=== PATIENT | female | born 1940 | race Caucasian/White ===

== ENCOUNTER 2017-11-26 09:29 | Outpatient (CLI) | payer MEDICARE, OTHER, SELFPAY ==
[2017-11-26] VITALS (13 sets, daily range): BP systolic 97–160; BP diastolic 43–82; PULSE 63–75; RESP 16–22; TEMP 36.6; O2SAT 92–100
--- NOTE | 2017-11-26 09:33 | DI.RAD.S_ITS ---
PROCEDURE: PAIN L/S MED/LAT N RFA INDICATIONS: Facet arthropathy, right-sided L4, L5, and S1 MB rhizotomy FINDINGS: Fluoroscopic spot filming was performed to verify placement of spinal needles at the right L4, right L5, right S1 nerve root level(s), as labeled on the films. Appropriate location(s) of the needle tip(s) was confirmed. IMPRESSION: Successful localization of the right L4, right L5, and right S1 nerve root courses for facet RF frequency ablation rhizotomy. Dictated by: Celso Serrano M.D. on 11/26/2017 at 12:02 Approved by: Celso Serrano M.D. on 11/26/2017 at 12:15
--- NOTE | 2017-11-26 10:06 | P.PCN_ITS ---
Procedures Date/Time Date of procedure: 11/26/17 Time of procedure: 10:05 General Procedure description: PREOP DIAGNOSIS 1. RECALCITRANT FACET ARTHROPATHY, POST OP DIAGNOSIS 1. RECALCITRANT FACET ARTHROPATHY, PROCEDURES 1. RIGHT L4 AND L5 MEDIAL BRANCH RADIOFREQUENCY NEUROTOMY AND RIGHT S1 DORSAL RAMUS BRANCH RADIOFREQUENCY NEUROTOMY, SURGEON: DO EMELINA Wilson is referred by Dr. Akins for treatment of facet arthropathy. DESCRIPTION OF PROCEDURE Right L4 and L5 medial branch radiofrequency neurotomy and right S1 dorsal ramus branch radiofrequency neurotomy under fluoroscopy with conscious sedation. The patient is well known to this clinic having undergone previous facet injections with good but temporary relief. The patient has experienced appropriate, concordant relief with previous facet and median branch blocks but the patient's pain has been recalcitrant to further conservative measures. Therefore, based upon the patient's relief and persistent symptoms, the patient is considered an appropriate candidate for facet rhizotomy. All of the patient' s questions regarding the risks versus benefits of the procedure, including, but not limited to, bleeding, infection, temporary as well as lasting nerve injury, paralysis, stroke, and , as well treatment alternatives were answered to satisfaction. After obtaining informed consent, denial of pertinent drug allergies, as well as being made aware of the potential risks of bleeding, infection, spinal cord trauma, paralysis, temporary and permanent nerve damage, seizure, stroke, and possible , the patient was brought to the fluoroscopy suite and positioned prone on the fluoroscopy table. The lumbar region was prepped with Betadine and covered with a fenestrated drape in the usual sterile fashion. Appropriate monitors applied including pulse oximeter, pulse, and blood pressure for regular monitoring throughout the procedure. IV sedation was accomplished with a combination of 5mg of Versed and 50mcg of Fentanyl titrated to patient comfort during the course of the procedure while the patient remained responsive to all verbal commands. After local infiltration using 1% lidocaine, under fluoroscopic guidance, a 10- cm RF insulated needle with a 10-mm active tip was positioned parallel to the junction of the right sacral ala and the superior articulating process where the S1 dorsal ramus resides. Needle placement was confirmed with sensory stimulation at 50 Hz, with motor stimulation of .5v on the right which produced local stimulation without radicular component. The stimulation was then increased to 1.5v with, once again, only local multifidus stimulation without radicular component. This was then followed by two discreet lesions performed at 80 degrees Celsius for 90 seconds each. The needle was then removed and the identical procedure was performed along the length of the right L5 medial branch with motor stimulation at .7v on the right. The identical procedure was once again performed along the length of the right L4 medial branch with motor stimulation of .5v on the right. The patient was then transferred to the recovery area where they were observed for an appropriate period of time after the injection. The patient reported a VAS score of 9 prior to the procedure and a post-procedure VAS of 0. Total Fluoroscopy Time: 31 seconds Total Conscious Sedation Time: 45min POST OP INSTRUCTIONS The patient was provided a Pain Log to continue to record the patient's response to the target-specific procedure prior to the patient's follow-up visit with the referring physician. Additionally, specific post-injection care instructions and a contact number to our office were provided if concerns arise regarding possible complications associated with the procedure are suspected. Cedric Newman DO Complications: none
[2017-11-26] MEDS: BUPIVACAINE 0.25% (PF) 30 ML VIAL INJ (11:56)
[2017-11-26] MEDS: fentaNYL 100 MCG/2 ML INJ 50 MCG IV (11:56)
[2017-11-26] MEDS: MIDAZOLAM 5 MG/5 ML VIAL IV (11:57)
[2017-11-26] MEDS: LIDOCAINE 1% 20 ML INJ INJ (11:57)
== END 2017-11-26 11:58 | disposition home or self-care (01) ==
PROVIDERS: Visit Provider Physical Medicine & Rehabilitation
DX: M47.816 Spondylosis without myelopathy or radiculopathy, lumbar region (principal)
CPT/HCPCS: 64635; 64636; 99152; 99153; J2250; J3010

== ENCOUNTER 2019-03-17 06:14 | Inpatient (IN) | payer MEDICARE, OTHER, SELFPAY ==
[2019-02-04 12:36] VITALS: BMI 33.5
[2019-03-17] VITALS (22 sets, daily range): BP systolic 82–134; BP diastolic 40–87; PULSE 70–96; RESP 10–18; TEMP 36.1–36.8; O2SAT 94–100; BMI 33.5
--- NOTE | 2019-03-17 | DI.RAD.S_ITS ---
PROCEDURE: XR LUMBAR SPINE 2-3V INDICATIONS: L4-S1 TLIF TECHNIQUE: 2 views of the lumbar spine were acquired. COMPARISON: [facility], MR, MR LUMBAR SPINE WITHOUT CONTRAST, 12/02/2018, 11:36. FINDINGS: AP and lateral operative images demonstrate posterior lateral inna and pedicle screw fixation at L4-S1 with placement of interbody disc material. IMPRESSION: Operative fluoroscopy utilized during L4-S1 TLIF Dictated by: Moreno Grossman M.D. on 03/17/2019 at 13:25 Approved by: Moreno Grossman M.D. on 03/17/2019 at 13:28
[2019-03-17] MEDS: LACTATED RINGERS 1,000 ML 42 ML IV ×3 (07:30→12:01)
--- NOTE | 2019-03-17 07:42 | SUR.PREOP ---
Spoke with Dr. Villegas regarding pt lower extremities. Per Dr. Villegas will leave stockenettes on and after pt is asleep in the OR they will be removed and wound care will see pt while inpatient. Communicated this with circulating RN, Mary.
--- NOTE | 2019-03-17 07:45 | PM.PREOP ---
Pre-operative Note Interval Note History & Physical reviewed/Exam performed by Physician: Yes Changes to H&P: No
[2019-03-17] MEDS: CEFAZOLIN 2 GM/100 ML FROZ.PIGGY IV ×2 (08:06→16:29)
[2019-03-17] MEDS: ACETAMINOPHEN IV 1,000 MG/100 ML VIAL 400 MG IV (09:00)
--- NOTE | 2019-03-17 09:15 | SUR.OPER ---
Prone on spine table, head in foam head support, padded chest and pelvic supports, gel pad at knees, lower legs supported by pillows; nipples, genitalia and toes free of pressure, arms secured on foam padded arm boards at <90 degrees abduction. Tape over blanket at thigh secured to table.
[2019-03-17] MEDS: BUPIVACAINE 0.25% W/ EPI 30 ML VIAL INJ (09:22)
[2019-03-17] MEDS: BUPIVACAINE LIPOSOME 266 MG/20 ML VIAL INJ (09:23)
--- NOTE | 2019-03-17 13:01 | CM.DANOTE ---
DCP Brief Assessment Note Patient is a 78 year old female who was admitted today 03/17/19 for TLIF. Pt has MCR and REG PPO for insurance and her PCP is Dr. Carlo Akins. EMR was reviewed. Per Josiane LARSON, pt to have back surgery today and pt's initial d/c plan is to d/c home with son Keegan for assist. SW attempted bedside assessment but pt still off the floor this afternoon in Surgery. Plan: SW to follow for bedside assessment later this afternoon or tomorrow when pt is back to the floor from surgery and appropriate for assessment. LUIS EDUARDO Yee
--- NOTE | 2019-03-17 13:10 | P.OP_ITS ---
Operative Date/Time/Diagnoses Date of procedure: 03/17/19 Time of procedure: 08:10 Pre-op diagnosis: 1. L4-5, L5-S1 spondylolisthesis 2. L4-5, L5-S1 spinal stenosis Post-op diagnosis: same Procedure & Clinicians Procedure: 1. L4-5, L5-S1 Postero-lateral and posterior interbody fusion 2. L4-5, L5-S1 interbody cage placement. 3. L4-5, L5-S1 decompressive laminectomy with bilateral facetecomies 4. L4-5, L5-S1 Posterior segmental instrumentation 5. Utilization of microsurgical technique and operating microscope Same procedure as scheduled: Yes Indications: Patient has been having chronic back pain and worsening lumbar radiculopathy. Patient failed multiple conservative management with worsening pain weakness and numbness in her lower extremity. Patient has been having difficulty performing activity of daily living. After discussing risks benefits of treatment options, patient elected proceed with surgery. Surgeon: Cathy Villegas Manager Labor Delivery: Loly Armas Click Yes if Unassisted: No Anesthesia Type: General Operative Notes Closure Type: primary Specimen(s): none sent Prosthetic devices, grafts, tissues, transplants, or devices: Globus revolve screws, Rise cages Applied: catheter Estimated Blood Loss (mL): 150 Blood products transfused: none Procedure in detail: Patient was seen in the preoperative area. Risks and benefits of the surgery was discussed with the patient. Informed consent was obtained from the patient and placed in the chart. Surgical site was marked. Patient was taken to the operative room. General anesthesia was administered. Prophylactic antibiotic was given to the patient less than 30 min before the incision was made. Patient was placed into a prone position on the Compa table. Patient's back was then prepped and draped in the sterile fashion. Time- out was performed at this time. Using AP and lateral C-arm imaging the interval between L4-S1 was identified and marked on patient's back. A 2 inch incision 2 in from midline was made on the right side first. The fascia was incised in line with skin incision. Globus MARS retractors was placed inside the incision and docked onto the L4 and L5 lamina. Using microsurgical technique and operating microscope, a L4 and L5 laminectomy and L4-5 L5-S1 facetectomy was performed using a Kerrison rongeur. During the process of decompression more than 75% of bilateral L4-5 L5-S1 facets were removed in order to decompress the spinal canal and the lateral recess. The L4-5 L5-S1 level was grossly unstable after the decompression was completed and requiring the fusion procedure. The disc space at L4-5, L5-S1 was identified. And a total diskectomy was performed at L4-5, L5-S1 level. The endplates were decorticated using a rasp and shaver. The total diskectomy and decortication was performed at L4-5, L5-S1 level in order to to accomplish a L4- 5, L5-S1 fusion. The local bone from the laminectomy and facetectomy was saved for local bone grafting. After the total diskectomy and decortication was completed, Bio4 bone graft material was combined with local bone that was harvested earlier. The local bone and the Bio4 bone grafting material was placed into the L4-5, L5-S1 interbody space along with two cages, one expandable cage at each level. The cages were expanded to their maximum height using the torque limiting screwdriver. At this time a mirror image incision was made on the left side. The fascia was incised in line with the skin incision. Globus MARS retractor was inserted and docked onto the L4-5, L5-S1 posterolateral gutter. Using the power drill, posterior-lateral decortication was performed at L4-5, L5-S1 level until bleeding cortical bone was identified. The remaining bone grafting material was placed into the L4-5 L5-S1 posterior lateral gutter he order to accomplish posterolateral fusion at the L4-5 L5-S1 levels. Using the double C-arm technique, pedicle screws were placed into the L4, L5, S1 pedicles bilaterally. This was done by placing the Jamshidi needle into the ped icles, then placing the guidewires over the Jamshidi needle, and finally placing the cannulated screws over the guidewires bilaterally. After the pedicle screws were placed, 2 titanium rods was locked into the heads of the pedicle screws using locking caps and torque limiting screwdriver. Total 6 pedicles screws were placed. Thread reducers were used to reduce patient's spondylolisthesis. An appropriate reduction was accomplished using the threaded reduce her and hardware used. After all the hardware was placed, and confirmed with AP and lateral C-arm imaging, the wound was then irrigated with sterile normal saline and packed with Ray-Hue gauze for 3 min to accomplish hemostasis. After the gauze was removed the deep fascia was closed with #1 Vicryl suture. The subcutaneous layer was des sed with 2-0 Vicryl. The skin was closed with skin jeovanny. Patient tolerated the procedure well. There were no complications. Complications: none Post-operative Condition: stable Disposition: PACU Plan for aftercare: Admit to inpatient hospital
[2019-03-17] MEDS: HYDROMORPHONE 2 MG INJ 0.5 MG IV ×2 (13:57→14:08)
[2019-03-17] MEDS: SODIUM CHLORIDE 0.9% 1,000 ML 100 ML IV (15:41)
--- NOTE | 2019-03-17 16:29 | PT-IP ANOTE ---
Checked on pt, but pt noted she did not want to push it and try to get up. Pt was very adamantly against getting up at this time. Check on pt in AM.
[2019-03-17] MEDS: OXYCODONE IR 5 MG TABLET 10 MG PO (17:09)
--- NOTE | 2019-03-17 19:48 | PC.NURSE ---
A&OX3. 97% 2L. pain controlled with oxycodone 10mg. CMS+. refused to get up with PT. RLE weepy cellulitis, RLE elevated. oriented pt to room. abraham patent. call light in reach.
[2019-03-17] MEDS: DOCUSATE 100 MG CAPSULE PO (20:49)
[2019-03-17] MEDS: SENNOSIDES 8.6 MG TABLET 17.2 MG PO (20:50)
[2019-03-17] MEDS: OXYCODONE ER 10 MG TAB PO (20:50)
[2019-03-17] MEDS: hydrOXYzine pamoate 25 MG CAPSULE PO (20:50)
[2019-03-18] VITALS (10 sets, daily range): BP systolic 118–136; BP diastolic 59–68; PULSE 80–86; RESP 15–20; TEMP 36.3–36.8; O2SAT 87–97
[2019-03-18] MEDS: CEFAZOLIN 2 GM/100 ML FROZ.PIGGY IV (00:11)
[2019-03-18] MEDS: OXYCODONE IR 5 MG TABLET 10 MG PO ×6 (00:55→23:27)
[2019-03-18] MEDS: hydrOXYzine pamoate 25 MG CAPSULE PO ×4 (00:56→21:05)
--- NOTE | 2019-03-18 01:00 | PC.NURSE ---
Pt requesting pain medication for 8/10 back pain. Medicated with percolone and Vistaril. Primary nurse, Janette, notified.
--- NOTE | 2019-03-18 01:40 | PC.NURSE ---
Addendum entered by Janette Jacinto R.N. 03/18/19 05:21: Complains of aching pain in low back radiating down right leg but denies spasms; medicated with Oxycodone. Declines repositioning or ice pack at this time. Addendum entered by Janette Jacinto R.N. 03/18/19 02:01: Wearing foot SCD on right foot only as states wearing SCD on left foot causes leg spasms so declines to wear on left. Original Note: Patient is alert; oriented except to month/day. Breath sounds CTA but mouth breaths and desats with sleep so is currently on 2L/min oxygen per NC with sat of 95%. HRR. Denies nausea. BT present but denies flatus. Indwelling catheter is patent; urine is clear yellow. Able to assist with repositioning. Dressing to back is CDI. Does complain of 8/10 sharp/spasm like pain and was medicated with Oxycodone but declined ice pack as is too cold. CMS is intact. Cellulitis present in bilateral LE prior to surgery left > right. Has Allevyn dressing to left anterior lower leg and has intact blisters distally to Allevyn dressing. Reports left leg is weepy and does have dried drainage on compression sleeves covering legs. Edema present in feet/ankles. Reports fall 1 month ago so fall risk score is high and bed alarm is activated.
[2019-03-18] MEDS: SODIUM CHLORIDE 0.9% 1,000 ML 100 ML IV (03:16)
[2019-03-18 05:44] LABS: Hematocrit 26.5 % (36-46)
--- NOTE | 2019-03-18 09:13 | PT.IIE ---
Current Diagnoses Spondylolisthesis, lumbar region (03/17/19) Other spondylosis with radiculopathy, lumbosacral region (03/17/19) Spinal stenosis, lumbar region with neurogenic claudication (03/17/19) Surgery Performed Operation Date: 03/17/19 07:45 Actual Procedures p L4-5, L5-S1 TLIF with posterior instrumentation - Cathy Villegas MD Surgical History (Last Updated 03/03/19 @ 10:09 by Radha Mclean RN) History of arthroplasty of left knee (Acute 06/09/17) History of arthroplasty of right knee (Acute) Hx of appendectomy (Acute ~1982) Medical History (Last Updated 03/03/19 @ 10:09 by Radha Mclean RN) Arthritis (Acute) Basal ganglia disease (Acute) Brain bleed (Acute ~12/2016) Cellulitis (Acute ~02/2019) Chronic venous hypertension (idiopathic) 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 (Acute) H/O: hysterectomy (Acute) HTN (hypertension) (Acute) Non-pressure 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 2 steps with R rail ascending Home Environment Standard Height Toilet,Tub/ Shower Home Equipment Front Wheel Walker,Four Wheel Walker,Straight Cane,Hand Held Shower Employment Status Retired M2 PT-IP Current Condition Start: 03/18/19 12:14 Freq: NEEDED Status: Active Protocol: Document 03/18/19 09:13 AB (Rec: 03/18/19 12:29 AB [email or web address]) Physical Therapy Current Condition Current Condition Evaluation Date 03/18/19 Treatment Diagnosis s/p L4-5, L5S1 fusion; difficulty in walking Onset Date 03/17/19 Precautions Lumbar Precautions Log Roll,No Twisting,Limit Bending,Lifting Restriction of 10 lbs,Gait Belt above Incisional Area M3 PT-IP Subjective Start: 03/18/19 12:14 Freq: NEEDED Status: Active Protocol: Document 03/18/19 09:13 AB (Rec: 03/18/19 12:29 AB [email or web address]) Subjective Physical Therapy Visit Type Type Initial Evaluation Visit Start Time 09:13 Visit Stop Time 09:49 Total Visit Minutes 36 Number of 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 Physical Therapy Visit Comments Patient Comments I cannot do this; pt easily agitated and contradictory to instructions and education Therapy Pain Assessment Pain When Pain Assessed At Rest Pain Present Pain Present Pain Reported Location Right Leg Intensity 6 Scale Used Numeric (1 - 10) Description Spasm Pain Management Techniques Timing of Activity with Medications M4 PT-IP Mobility and Gait Start: 03/18/19 12:14 Freq: NEEDED Status: Active Protocol: Document 03/18/19 09:13 AB (Rec: 03/18/19 12:29 AB [email or web address]) PT-Bed Mobility Assessment Rolling Level of Assist Maximal Assistance,1 Person Assistance Supine to Sit Supine to Sit Maximum Assistance,1 Person Assistance,2 Person Assistance Scooting Scooting to Edge of Bed Maximum Assistance PT-Transfer Assessment Sit to and From Stand Sit to and from Stand Maximum Assistance,2 Person Assistance,Use of Upper Extremities Equipment Transfer Assistive Device Gait Belt,Front Wheeled Walker Orthotic/Prosthetic Devices or Brace: No Transfers Transfer Technique Stand Step Pivot Transfer Ability Level of Assist Maximum Assistance,2 Person Assistance,Use of Upper Extremities Comments Mobility Comments pt c/o increase pain with mobility and contradicting instructions for safe transfers. pt completed supine to sit log roll max A and max cues. pt was able to sit on EOB CGA. required max A x 1-2 for scooting to EOB. pt stated that she cannot do it. completed sit to stand max A x 2 and max cues. and was able to take steps to transfer to the chair using FWW max A x 2 and max cues. Gait Assessment Comments Gait Comments able to take steps to transfer to the chair using FWW max A x 2 and max cues PT-Balance Assessment Sitting Balance and Reactions Static Sitting Balance Ability Good Dynamic Sitting Balance Ability Fair Standing Balance and Reactions Static Standing Balance Ability Poor Dynamic Standing Balance Ability Poor Device Used FWW M5 PT-IP Objective Assessments Start: 03/18/19 12:14 Freq: NEEDED Status: Active Protocol: Document 03/18/19 09:13 AB (Rec: 03/18/19 12:29 AB [email or web address]) Orientation Orientation/Cognition Level of Alertness Alert Orientation Name,Place,Situation Safety Awareness Decreased Safety Awareness Gross Range of Motion Lower Extremity ROM Assessment Bilaterally Impaired Impairments pain limiting movements Strength Lower Extremity Strength Assessment Bilaterally Impaired Hip 3-/5 Knee 3-/5 Muscle Tone Muscle Tone WNL Yes M6 PT-IP Treatment Start: 03/18/19 12:14 Freq: NEEDED Status: Active Protocol: Document 03/18/19 09:13 AB (Rec: 03/18/19 12:29 AB [email or web address]) Physical Therapy Treatment Exercises Exercises Heel Slides Education Education Provided Precautions,Weight Bearing Status,Post-Op Packet,Safety M7 PT-IP Assessment and Plan Start: 03/18/19 12:14 Freq: NEEDED Status: Active Protocol: Document 03/18/19 09:13 AB (Rec: 03/18/19 12:29 AB [email or web address]) PT Summary Assessment and Plan Potential Rehabilitation Potential Fair Status of Condition at Evaluation Evolving Summary Impairments Pain,ROM,Strength,Balance, Coordination,Sensation,Tone, Cognition,Bed Mobility, Transfers,Gait,Activity Tolerance Assessment Summary pt requiring max A x 2 with mobillity and c/o increase pain with activity affecting function. pt unable to ambulate and tolerate much activity due to c/o pain. nurse is aware of pt's c/o pain. d/c plan depending on progress but at this time irvin need SNF rehab to improve strength and mobility. Goals Bed Mobility Goal Contact Guard Assistance Transfer Goal Contact Guard Assistance,Front Wheeled Walker Gait Goal Contact Guard Assistance,Front Wheel Walker Gait Distance 100 Other Goals up/down 2 steps R rail CGA Days to Meet Goals 5 Frequency of Treatment Frequency Of Treatment Twice a Day Treatment Plan Physical Therapy Treatment Plan Bed Mobility Training,Transfer Training,Gait Training, Therapeutic Exercise,Balance Retraining,Post Op Education, Discharge Planning,Hot or Cold Pack,Neuromuscular Re-ed, Coordination Retraining,Manual Therapy Other Recommendations and Next Treatment ambulation, transfers, bed Focus mobility Recommendations To Nursing Amount of Assist Needed 2 Person Assist Discharge Recommendations PT Discharge Recommendations SNF Rehab
[2019-03-18] MEDS: ACETAMINOPHEN 325 MG TABLET 650 MG PO (09:24)
[2019-03-18] MEDS: OXYCODONE ER 10 MG TAB PO ×2 (09:25→21:02)
[2019-03-18] MEDS: LOSARTAN 50 MG TABLET PO ×2 (09:25→21:02)
[2019-03-18] MEDS: hydroCHLOROthiazide 25 MG TABLET PO (09:25)
[2019-03-18] MEDS: DOCUSATE 100 MG CAPSULE PO ×2 (09:25→21:02)
[2019-03-18] MEDS: AMLODIPINE 5 MG TABLET 10 MG PO (09:44)
--- NOTE | 2019-03-18 10:31 | PM.PNPO.1 ---
Subjective Subjective Date Patient Seen: 03/18/19 Time Patient Seen: 10:31 Interval history: Hospital day 2, postop day 1 following L4-5, L5-S1 laminectomy, TLIF, cage, posterior screw fixation by Dr. Villegas. Patient has remained stable postoperatively. She has not had physical therapy yet. She has not been out of bed yet. Does have Lee catheter in place. Pain controlled with OxyContin 10 mg 1 b.i.d. and oxycodone 10 mg. Patient does have lower leg stasis and cellulitis that is being treated by the [facility]. She states having dressings changed usually on Mondays and Fridays. Her last dressing change was done on Friday03/15/2019. She has been noting some weeping to the left leg through her compression stockings. Exam Vital Signs (past 8 hours): - 03/18/19 05:00 03/18/19 07:45 Temperature 97.3 F L 97.7 F Pulse Rate 81 80 Respiratory Rate 18 15 Blood Pressure 121/61 127/65 Pulse Oximetry 96 95 Fraction of Inspired Oxygen 28 Oxygen Delivery Method Nasal Cannula Oxygen Flow Rate 2 Narrative Exam Narrative: Alert, oriented no acute distress resting in bed. Back. Dressing is dry without drainage. Legs. Good pulses and sensation to feet. Compression stockings are in place to both legs. Does have some weeping noted to the left lower leg through the stockings. Objective Labs Result Diagrams: 03/18/19 05:29 Labs: Laboratory Results - last 24 hr 03/18/19 05:29 Hgb 9.0 L Hct 26.5 L Assessment & Plan Post-op Postoperative Procedures: Procedures Operation Date: 03/17/19 07:45 Actual Procedures Side Surgeon p L4-5, L5-S1 TLIF with posterior instrumentation Cathy Villegas MD Plan: Patient will work with physical therapy today. Observe for improvement in pain and function. Recheck H&H in the morning. We will check with [facility] to get their recommendation on what to do with her leg wounds. May need to have our Wound Clinic see her. JOSE Lee. Anticipate discharge home tomorrow if she is stable.
--- NOTE | 2019-03-18 11:20 | DIET.PN ---
Dietary Progress Note Assessment: 78y F s/p translaminar interbody fusion c acute cellulitis and edema in legs. HT: 167.6cm WT: 94.2kg BMI: 33 Interventions: Recc ONS Luis bid to support resolving cellulitis
[2019-03-18] MEDS: HYDROMORPHONE 0.5 MG INJ IV (12:11)
--- NOTE | 2019-03-18 14:57 | PT.IPTN ---
Current Diagnoses Spondylolisthesis, lumbar region (03/17/19) Other spondylosis with radiculopathy, lumbosacral region (03/17/19) Spinal stenosis, lumbar region with neurogenic claudication (03/17/19) Surgery Performed Operation Date: 03/17/19 07:45 Actual Procedures p L4-5, L5-S1 TLIF with posterior instrumentation - Cathy Villegas MD Physical Therapy Treatment Note M2 PT-IP Current Condition Start: 03/18/19 12:14 Freq: NEEDED Status: Active Protocol: Document 03/18/19 09:13 AB (Rec: 03/18/19 12:29 AB [id number]) Physical Therapy Current Condition Current Condition Evaluation Date 03/18/19 Treatment Diagnosis s/p L4-5, L5S1 fusion; difficulty in walking Onset Date 03/17/19 Precautions Lumbar Precautions Log Roll,No Twisting,Limit Bending,Lifting Restriction of 10 lbs,Gait Belt above Incisional Area M3 PT-IP Subjective Start: 03/18/19 12:14 Freq: NEEDED Status: Active Protocol: Document 03/18/19 14:57 AB (Rec: 03/18/19 17:14 AB [email or web address]) Subjective Physical Therapy Visit Type Type Treatment Note Visit Start Time 14:57 Visit Stop Time 15:27 Total Visit Minutes 30 Number of CATTYMAN Visits 0 Physical Therapy Visit Comments Patient Comments pt she feels better since she is medicated M4 PT-IP Mobility and Gait Start: 03/18/19 12:14 Freq: NEEDED Status: Active Protocol: Document 03/18/19 14:57 AB (Rec: 03/18/19 17:14 AB [email or web address]) PT-Bed Mobility Assessment Supine to Sit Supine to Sit Maximum Assistance,2 Person Assistance,Bedrails Sit to Supine Sit to Supine Maximum Assistance,2 Person Assistance,Bedrails Scooting Scooting to Edge of Bed Maximum Assistance Scooting Up and Down in Bed Maximum Assistance PT-Transfer Assessment Sit to and From Stand Sit to and from Stand Maximum Assistance,2 Person Assistance,Use of Upper Extremities Equipment Transfer Assistive Device Gait Belt,Front Wheeled Walker Orthotic/Prosthetic Devices or Brace: No Comments Mobility Comments pt completed uspine to sit max A x 2 and max cues and used bed rail for assistance. pt was able to sit on EOB CGA and completed sit to stand max A x 2 and max cues. pt ambulated in room using FWW ~ 15 ft mod A x 1-2 and cues. pt sat back on EOB requiring mod Ax 1-2 for controlled descent. pt completed sit to stand from EOB again max A x 2 and max cues and was able to maintain standing using FWW for support mod A while assisted with brief managmenet . pt stated that she does not like the chair and wants to go back to bed. completed sit to supine max A x 2 and max cues. positioned pt in bed. call light and table placed within reach. Gait Assessment Gait Gait Assistance Required: Moderate Assistance,1 Person Assist,2 Person Assist Distance (Feet) 15 Able to Maintain Weight Bearing Status Yes During Gait Assistive Devices Assistive Device Gait Belt,Front Wheeled Walker Orthotic/Prosthetic Devices or Brace: No Gait Deviations General Gait Pattern Antalgic,Decreased Stride Length,Decreased Feet Clearance,Step-to Gait Factors Limiting Gait Function Factors Limiting Gait Function Decreased Activity Tolerance, Decreased Strength,Limited Range of Motion,Pain,Poor Balance,Poor Safety Awareness Comments Gait Comments pt presents with antalgic gait and cues required for safety. M5 PT-IP Objective Assessments Start: 03/18/19 12:14 Freq: NEEDED Status: Active Protocol: Document 03/18/19 09:13 AB (Rec: 03/18/19 12:29 AB [email or web address]) Orientation Orientation/Cognition Level of Alertness Alert Orientation Name,Place,Situation Safety Awareness Decreased Safety Awareness Gross Range of Motion Lower Extremity ROM Assessment Bilaterally Impaired Impairments pain limiting movements Strength Lower Extremity Strength Assessment Bilaterally Impaired Hip 3-/5 Knee 3-/5 Muscle Tone Muscle Tone WNL Yes M6 PT-IP Treatment Start: 03/18/19 12:14 Freq: NEEDED Status: Active Protocol: Document 03/18/19 14:57 AB (Rec: 03/18/19 17:14 AB [email or web address]) Physical Therapy Treatment Education Education Provided Precautions,Safety M7 PT-IP Assessment and Plan Start: 03/18/19 12:14 Freq: NEEDED Status: Active Protocol: Document 03/18/19 14:57 AB (Rec: 03/18/19 17:14 AB [email or web address]) PT Summary Assessment and Plan Potential Rehabilitation Potential Fair Summary Impairments Pain,ROM,Strength,Balance, Coordination,Sensation,Tone, Cognition,Bed Mobility, Transfers,Gait,Activity Tolerance Progress Towards Goals Slow Progress due to Pain,Slow Progress due to Activity Tolerance Assessment Summary pt continues to require max A x2 for bed mobility and transfers but was able to ambulate this afternoon requiring mod A x 1-2 and cues up to 15 ft. pt will need SNF rehab to improve strength and mobility prior to d/c to home . Goals Bed Mobility Goal Contact Guard Assistance Transfer Goal Contact Guard Assistance,Front Wheeled Walker Gait Goal Contact Guard Assistance,Front Wheel Walker Gait Distance 100 Other Goals up/down 2 steps R rail CGA Days to Meet Goals 5 Frequency of Treatment Frequency Of Treatment Twice a Day Treatment Plan Physical Therapy Treatment Plan Bed Mobility Training,Transfer Training,Gait Training, Therapeutic Exercise,Balance Retraining,Post Op Education, Discharge Planning,Hot or Cold Pack,Neuromuscular Re-ed, Coordination Retraining,Manual Therapy Other Recommendations and Next Treatment ambulation, transfers, bed Focus mobility Recommendations To Nursing Amount of Assist Needed 2 Person Assist Discharge Recommendations PT Discharge Recommendations SNF Rehab
--- NOTE | 2019-03-18 14:57 | PC.NURSE ---
Addendum entered by Jair Garay R.N. 03/18/19 14:59: Patient tolerated dressing change well. Patient reports she would like rosario out as ordered, but would like to attempt to get up with PT again this evening prior to removal. Patient states it was very challenging to get up and wants to make sure she will be able to get to the [facility] to urinate. Patient states using the bedpan is not going to work. Will update evening shift with plan of care. Original Note: Dressing to left leg oozing sangenous drainage. Removed, leg washed with normal saline. Pictures taken. Multiple open blisters noted with weeping. Non adherent foam dressing applied, then ABD pad and then wrapped with gauze. Tubi machine setter sheet metal stocking overlay placed. Right lower leg skin dry but intact, lotion applied. Noted received from [facility] wound clinic placed in chart.
--- NOTE | 2019-03-18 17:44 | OT.IP.EVAL ---
Current Diagnoses Spondylolisthesis, lumbar region (03/17/19) Other spondylosis with radiculopathy, lumbosacral region (03/17/19) Spinal stenosis, lumbar region with neurogenic claudication (03/17/19) Surgery Performed Operation Date: 03/17/19 07:45 Actual Procedures p L4-5, L5-S1 TLIF with posterior instrumentation - Cathy Villegas MD Past Medical History (Last Updated 03/03/19 @ 10:09 by Radha Mclean RN) Arthritis (Acute) Basal ganglia disease (Acute) Brain bleed (Acute ~12/2016) Cellulitis (Acute ~02/2019) Chronic venous hypertension (idiopathic) 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 (Acute) H/O: hysterectomy (Acute) HTN (hypertension) (Acute) Non-pressure chronic ulcer of left lower leg with fat layer exposed (Acute ~02/2019) Surgical History (Last Updated 03/03/19 @ 10:09 by Radha Mclean RN) History of arthroplasty of left knee (Acute 06/09/17) History of arthroplasty of right knee (Acute) Hx of appendectomy (Acute ~1982) Occupational Therapy Inpatient Evaluation/Re-Eval M1 PT/OT-IP Prior Functional Status Start: 03/18/19 17:26 Freq: NEEDED Status: Active Protocol: Document 03/18/19 17:27 [facility] (Rec: 03/18/19 17:44 [facility] [email or web address]) Medical Review Prior Functional Status Medical History Reviewed Yes Communication able to make needs known Mobility and Gait pt stated that she is modified independent with all mobilities and ambulation using a SPC/hurrycane Activities of Daily Living and IADL's Prior pt states completely independent with all needs of ADl's, IADl's, driving, medications, and finanaces. Social History Household Members children Living Arrangements House Number of Floors (Floors) One Floor Number of Stairs To Enter/Railing? 2 steps with R rail ascending Home Environment Standard Height Toilet,Tub/ Shower Home Equipment Front Wheel Walker,Four Wheel Walker,Straight Cane,Hand Held Shower,Long Handled Shoe Horn ,Oil Well Directional Surveyor Employment Status Retired M2 OT-IP Current Condition Start: 03/18/19 17:26 Freq: Status: Active Protocol: Document 03/18/19 17:27 [facility] (Rec: 03/18/19 17:44 [facility] [email or web address]) Occupational Therapy Current Condition Current Condition Evaluation Date 03/18/19 Treatment Diagnosis S/P L4-5, L5-S1, TLIF with posterior instr Diagnosis Onset Date 03/17/19 Post Operative Precautions Lumbar Precautions Log Roll,No Twisting,Limit Bending,Lifting Restriction of 10 lbs,Gait Belt above Incisional Area Weight Bearing Status Weight Bearing Status Weight Bear as Tolerated M3 OT- IP Subjective and Pain Start: 03/18/19 17:26 Freq: Status: Active Protocol: Document 03/18/19 17:27 [facility] (Rec: 03/18/19 17:44 [facility] [email or web address]) OT- Subjective Occupational Therapy Visit Type Type Initial Evaluation Visit Start Time 14:45 Visit Stop Time 15:27 Total Visit Minutes 42 Occupational Therapy Visit Comments Patient Comments Pt agreeable to get up and now pain more managed. OT Pain Assessment Pain When Pain Assessed At Rest Pain Present Pain Present Denied Pain M4 OT- IP ADL's Start: 03/18/19 17:26 Freq: Status: Active Protocol: Document 03/18/19 17:27 [facility] (Rec: 03/18/19 17:44 [facility] [email or web address]) OT [id number] Comments OT Self-Feeding Comments Pt states able to do independent at lunch with no problems. OT ADL-Dressing General Eval Lower Body Dressing Ability Maximum Assistance Areas Needing Assistance Underpants/Brief,Socks Comments OT Dressing Comments Beginning to talk to her about techniques to incorporate back precautions and use of lower body equipment. Pt assist to tread rosario through brief and assist to help pull up over her hips while another person standing with pt MODA x1. OT ADL-Toileting Comments OT Toileting Comments Pt not having to go as has catheter in. OT ADL-Bathing Comments OT Bathing Comments Pt states have a shower chair but does not like to use it. Pt has a tub/shower and showed her option of tub bench if needed to increase safety to get into and out of the tub. M5 OT- IP IADL's Start: 03/18/19 17:26 Freq: Status: Active Protocol: Document 03/18/19 17:27 [facility] (Rec: 03/18/19 17:44 [facility] [email or web address]) OT-Instrumental Activities of Daily Living Home Safety Awareness Home Safety Comments Pt states manages everything on her own at home. M6 OT- IP Functional Cognition Start: 03/18/19 17:26 Freq: Status: Active Protocol: Document 03/18/19 17:27 [facility] (Rec: 03/18/19 17:44 [facility] [email or web address]) Cognitive Factors Limiting Selfcare Function Cognitive Ability Level of Alertness Alert Patient Orientation Name,Place,Situation Attention Span Ability Capable of Focused Attention, Capable of Sustained Attention Ability to Follow Commands Able to Follow One Step Commands Memory Description Short Term Impaired Safety Awareness Decreased Recall of Precautions,Decreased Ability to Apply Precautions, Underestimates Need for Assistance Problem Solving Ability Needs Assist to Identify Solutions Cognitive Comments Cognitive Assessment Comments Intially only able to recall 1 /3 back preacautions and after education able to recall all. Pt needing vc for safety awareness of how to use FWW to keep it in front of her but not too close . OT- Vision and Hearing OT- Hearing Assessment OT- Hearing Assessment WFL M7 OT- IP Mobility and Balance Start: 03/18/19 17:26 Freq: Status: Active Protocol: Document 03/18/19 17:27 [facility] (Rec: 03/18/19 17:44 [facility] [email or web address]) OT- Bed Mobility Assessment Supine to Sit Supine to Sit Assist Maximum Assistance,2 Person Assistance Sit to Supine Sit to Supine Assist Maximum Assistance,2 Person Assistance OT-Transfer Assessment Sit to and From Stand Sit to and from Stand Maximum Assistance,2 Person Assistance Transfers Transfer Ability Moderate Assistance,1 Person Assistance,2 Person Assistance Technique Transfer Destination Bed,Chair Devices Transfer Assistive Devices Gait Belt,Front Wheeled Walker Comments Mobility Comments Pt needing extensive assist for bed mobility and transfers at this time. OT- Balance Assessment Sitting Balance and Reactions Static Sitting Balance Ability Good Standing Balance and Reactions Static Standing Balance Ability Fair M8 OT- IP Objective Assessments Start: 03/18/19 17:26 Freq: Status: Active Protocol: Document 03/18/19 17:27 [facility] (Rec: 03/18/19 17:44 [facility] [email or web address]) OT Gross Range of Motion Upper Extremity Range of Motion Assessment Within Functional Limits OT Strength Upper Extremity Strength Assessment Within Functional Limits M9 OT- IP Assessment and Plan Start: 03/18/19 17:26 Freq: Status: Active Protocol: Document 03/18/19 17:27 [facility] (Rec: 03/18/19 17:44 [facility] [email or web address]) OT Summary Assessment and Plan Potential Rehabilitation Potential Good Analytic Complexity at Evaluation Low Summary OT Impairments Pain,Balance,Functional Mobility,Grooming,Dressing, Toileting,Bathing,Toilet Transfers,Shower Transfers Progress Towards Goals Slow Progress due to Pain,Slow Progress due to Activity Tolerance Assessment Summary Pt low complexity and main barrier are steps at home and now needing two person assist for all mobility needs, needing assist for ADL's. At this time pt far from baseline and son works and therefore will have to be MOD I prior to going home. Therefore recommend skilled rehab for pt prior to going home. Goals Grooming Goal Standby Assistance Dressing Goal Standby Assistance Toileting Goal Standby Assistance Bathing Goal Minimal Assistance Toilet Transfer Goal Standby Assistance Shower Transfer Goal Minimal Assistance Days to Meet Goals 10 Frequency of Treatment Frequency Of Treatment Once a Day Treatment Plan OT Treatment Plan ADL Training,Functional Cognition Training,Functional Mobility,Patient/Family Education,Discharge Planning Other Treatment Recommendations and Next lower body dressing needs Treatment Focus Discharge Recommendations OT Discharge Recommendations SNF Rehab Home Equipment Needs Tub bench
[2019-03-18] MEDS: SENNOSIDES 8.6 MG TABLET 17.2 MG PO (21:01)
[2019-03-18] MEDS: SODIUM CHLORIDE 0.9% FLUSH 10 ML IV (21:03)
--- NOTE | 2019-03-18 23:55 | PC.NURSE ---
Addendum entered by Janette Jacinto R.N. 03/19/19 06:28: Patient had taken O2 off and last sat showing, again, only 87%. Discussed with patient importance of DB and using oxygen to maintain higher sat to promote healing. Oxygen replaced at 1L/min. Addendum entered by Janette Jacinto R.N. 03/19/19 06:04: Now complains of muscles spasms so medicated with Vistaril. Addendum entered by Janette Jacinto R.N. 03/19/19 05:32: Asleep but when awakened for lab immediately begins moaning/groaning stating it hurts. Medicated with Oxycodone and repositioned but continues to moan/groan loudly. Declines offer of ice. Assured patient staff will check back and if pain not controlled within 30min will give additional pain meds. Addendum entered by Janette Jacinto R.N. 03/19/19 02:00: When repositioned states pain sharp with movement and now pain is 5/10; medicated with Tylenol + Vistaril and too early to repeat Oxycodone. Original Note: Patient is alert and oriented except for day of month/week. Breath sounds CTA but RA sat only 87% so oxygen restarted at 1L/min and sat improved to 93%. HRR. Denies nausea. BT hypoactive and still denies passing flatus. Indwelling catheter is patent; urine is clear yellow. Is able to reposition with assistance. At shift change complained only of stiffness but now in room moaning and states back pain is 6/10 and can't get comfortable. Medicated with Oxycodone IR and assisted to reposition onto back. CMS intact bilaterally. Refused SCD's. Dressing to left LE is CDI and leg is elevated on pillow. Fall risk score is high and bed alarm is activated.
[2019-03-19] VITALS (9 sets, daily range): BP systolic 116–140; BP diastolic 49–81; PULSE 88–104; RESP 14–19; TEMP 36.6–37.5; O2SAT 87–94
[2019-03-19] MEDS: ACETAMINOPHEN 325 MG TABLET 650 MG PO ×2 (01:54→19:00)
[2019-03-19] MEDS: hydrOXYzine pamoate 25 MG CAPSULE PO ×4 (01:54→19:00)
[2019-03-19] MEDS: OXYCODONE IR 5 MG TABLET 10 MG PO ×2 (05:27→11:43)
[2019-03-19 05:44] LABS: Hematocrit 24.8 % (36-46); Hemoglobin 8.3 g/dL (12.0-16.0)
[2019-03-19] MEDS: OXYCODONE ER 10 MG TAB PO ×2 (09:30→20:39)
[2019-03-19] MEDS: AMLODIPINE 5 MG TABLET 10 MG PO (09:30)
[2019-03-19] MEDS: DOCUSATE 100 MG CAPSULE PO ×2 (09:30→20:39)
[2019-03-19] MEDS: OXYCODONE IR 5 MG TABLET PO (09:30)
[2019-03-19] MEDS: SODIUM CHLORIDE 0.9% FLUSH 10 ML IV ×2 (09:32→20:37)
[2019-03-19] MEDS: LOSARTAN 50 MG TABLET PO ×2 (09:32→20:39)
[2019-03-19] MEDS: hydroCHLOROthiazide 25 MG TABLET PO (09:32)
--- NOTE | 2019-03-19 11:20 | PT.IPTN ---
Current Diagnoses Spondylolisthesis, lumbar region (03/17/19) Other spondylosis with radiculopathy, lumbosacral region (03/17/19) Spinal stenosis, lumbar region with neurogenic claudication (03/17/19) Surgery Performed Operation Date: 03/17/19 07:45 Actual Procedures p L4-5, L5-S1 TLIF with posterior instrumentation - Cathy Villegas MD Physical Therapy Treatment Note M2 PT-IP Current Condition Start: 03/18/19 12:14 Freq: NEEDED Status: Active Protocol: Document 03/18/19 09:13 AB (Rec: 03/18/19 12:29 AB [email or web address]) Physical Therapy Current Condition Current Condition Evaluation Date 03/18/19 Treatment Diagnosis s/p L4-5, L5S1 fusion; difficulty in walking Onset Date 03/17/19 Precautions Lumbar Precautions Log Roll,No Twisting,Limit Bending,Lifting Restriction of 10 lbs,Gait Belt above Incisional Area M3 PT-IP Subjective Start: 03/18/19 12:14 Freq: NEEDED Status: Active Protocol: Document 03/19/19 11:20 [facility] (Rec: 03/19/19 12:11 [facility] [id number]) Subjective Physical Therapy Visit Type Type Treatment Note Visit Start Time 10:55 Visit Stop Time 11:20 Total Visit Minutes 25 Physical Therapy Visit Comments Patient Comments Pt willing to work with therapy. Therapy Pain Assessment Pain When Pain Assessed At Rest Pain Present Pain Present Pain Reported Location Back Description Burning,Spasm Pain Behaviors Calling Out,Guarding M4 PT-IP Mobility and Gait Start: 03/18/19 12:14 Freq: NEEDED Status: Active Protocol: Document 03/19/19 11:20 [facility] (Rec: 03/19/19 12:11 [facility] [id number]) PT-Bed Mobility Assessment Rolling Level of Assist Maximal Assistance,1 Person Assistance Supine to Sit Supine to Sit Maximum Assistance,2 Person Assistance,Bedrails Scooting Scooting to Edge of Bed Maximum Assistance Scooting Up and Down in Bed Maximum Assistance PT-Transfer Assessment Sit to and From Stand Sit to and from Stand Moderate Assistance,2 Person Assistance,Use of Upper Extremities Equipment Transfer Assistive Device Gait Belt,Front Wheeled Walker Orthotic/Prosthetic Devices or Brace: No Transfers Transfer Destination Chair Transfer Ability Level of Assist Maximum Assistance,2 Person Assistance,Use of Upper Extremities Gait Assessment Gait Gait Assistance Required: Moderate Assistance,2 Person Assist Distance (Feet) 3 Able to Maintain Weight Bearing Status Yes During Gait Assistive Devices Assistive Device Gait Belt,Front Wheeled Walker Orthotic/Prosthetic Devices or Brace: No Gait Deviations General Gait Pattern Antalgic,Decreased Stride Length,Decreased Feet Clearance,Step-to Gait Factors Limiting Gait Function Factors Limiting Gait Function Decreased Activity Tolerance, Decreased Strength,Limited Range of Motion,Pain,Poor Balance,Poor Safety Awareness M5 PT-IP Objective Assessments Start: 03/18/19 12:14 Freq: NEEDED Status: Active Protocol: Document 03/18/19 09:13 AB (Rec: 03/18/19 12:29 AB [email or web address]) Orientation Orientation/Cognition Level of Alertness Alert Orientation Name,Place,Situation Safety Awareness Decreased Safety Awareness Gross Range of Motion Lower Extremity ROM Assessment Bilaterally Impaired Impairments pain limiting movements Strength Lower Extremity Strength Assessment Bilaterally Impaired Hip 3-/5 Knee 3-/5 Muscle Tone Muscle Tone WNL Yes M6 PT-IP Treatment Start: 03/18/19 12:14 Freq: NEEDED Status: Active Protocol: Document 03/19/19 11:20 [facility] (Rec: 03/19/19 12:11 [facility] [id number]) Physical Therapy Treatment Education Education Provided Precautions,Safety M7 PT-IP Assessment and Plan Start: 03/18/19 12:14 Freq: NEEDED Status: Active Protocol: Document 03/19/19 11:20 [facility] (Rec: 03/19/19 12:11 [facility] [id number]) PT Summary Assessment and Plan Summary Assessment Summary Pt requiring max a x 2 for bed mobility and transfers. She took small steps, had difficulty with weight shift to unload LE for LE advancement. She will need SNF rehab before returning home. Frequency of Treatment Frequency Of Treatment Twice a Day Treatment Plan Physical Therapy Treatment Plan Bed Mobility Training,Transfer Training,Gait Training, Therapeutic Exercise,Balance Retraining,Post Op Education, Discharge Planning,Hot or Cold Pack,Neuromuscular Re-ed, Coordination Retraining,Manual Therapy Recommendations To Nursing Amount of Assist Needed 2 Person Assist Discharge Recommendations PT Discharge Recommendations SNF Rehab
--- NOTE | 2019-03-19 12:34 | PC.NURSE ---
Addendum entered by Leidy Ferrer R.N. 03/19/19 15:11: Pt did apologize for yelling at staff. She has done this several times today. Jesus not taken out at this point as pt is not walking well with therapy. Will reevaluate pt tomorrow and see how she does. Addendum entered by Leidy Ferrer R.N. 03/19/19 14:44: Pt working with PT and screaming at the top of her lungs. She is able to do Physical therapy and though it has been hard for her, she has been snappy with staff and rude. Explained to pt that she cannot be screaming like that, we know she is in pain and we will do what we can to accommodate her discomfort. Pt just had pain medication around 1145. Will medicate her now. Jesus remains in as she is not working well with pt/ot. Just asked pt if she would like to have some pain medication but she states that she is doing well at this time in her new bed. She seems to be manipulative with staff and short if she does not get what she wants right away. Now comfortable. Original Note: Pt is a&ox3 and states that she was having pain a bit ago. RN gave pt 10mg of po oxycodone and she appears to be much more comfortable. She is sitting up in her chair and eating lunch. Pt does not want to go to a snf but she is not progressing in physical therapy very well. Pt does complain a lot and states that she is constantly uncomfortable. Explained to pt that she is going to be in some pain, but she is not receptive to wanting to listen to what we say. Jesus has not yet been removed as she is not moving well. Wound clinic Dr trejo see patients wound to her l. lower leg and dressing is cdi, will need to be changed again tomorrow. He states that patient has venous issues with lower extremities. L. lower leg is swollen with 2+ edema and pt is a max 2 person assist when doing transfers from chair to bed. She is comfortable at this time.
--- NOTE | 2019-03-19 14:43 | PC.NURSE ---
Wound Nurse Consult with Dr.Minow Dr Bailon and I saw Mrs. Dowd. She is sitting up in the chair. She has had recent back surgery. She has a history of Venous Insufficiency and has been seen at the [facility]. She has compression hose but has not worn. She has a dressing of Optifoam and rol guaze. We recommend continues dressing changes every other day and as needed. She should most likely follow up with [facility] upon discharge.
--- NOTE | 2019-03-19 14:50 | PT.IPTN ---
Current Diagnoses Spondylolisthesis, lumbar region (03/17/19) Other spondylosis with radiculopathy, lumbosacral region (03/17/19) Spinal stenosis, lumbar region with neurogenic claudication (03/17/19) Surgery Performed Operation Date: 03/17/19 07:45 Actual Procedures p L4-5, L5-S1 TLIF with posterior instrumentation - Cathy Villegas MD Physical Therapy Treatment Note M2 PT-IP Current Condition Start: 03/18/19 12:14 Freq: NEEDED Status: Active Protocol: Document 03/18/19 09:13 AB (Rec: 03/18/19 12:29 AB [email or web address]) Physical Therapy Current Condition Current Condition Evaluation Date 03/18/19 Treatment Diagnosis s/p L4-5, L5S1 fusion; difficulty in walking Onset Date 03/17/19 Precautions Lumbar Precautions Log Roll,No Twisting,Limit Bending,Lifting Restriction of 10 lbs,Gait Belt above Incisional Area M3 PT-IP Subjective Start: 03/18/19 12:14 Freq: NEEDED Status: Active Protocol: Document 03/19/19 14:50 GGD (Rec: 03/19/19 15:39 GGD [id number]) Subjective Physical Therapy Visit Type Type Treatment Note Visit Start Time 14:23 Visit Stop Time 14:47 Total Visit Minutes 24 Number of TIPPLE OILER Visits 1 Physical Therapy Visit Comments Patient Comments Pt working with OT. M4 PT-IP Mobility and Gait Start: 03/18/19 12:14 Freq: NEEDED Status: Active Protocol: Document 03/19/19 14:50 GGD (Rec: 03/19/19 15:39 GGD [id number]) PT-Bed Mobility Assessment Sit to Supine Sit to Supine Maximum Assistance,2 Person Assistance,Bedrails Scooting Scooting to Edge of Bed Maximum Assistance Scooting Up and Down in Bed Maximum Assistance PT-Transfer Assessment Sit to and From Stand Sit to and from Stand Maximum Assistance,2 Person Assistance,Use of Upper Extremities Equipment Transfer Assistive Device Gait Belt,Front Wheeled Walker Orthotic/Prosthetic Devices or Brace: No Transfers Transfer Destination Bed Transfer Ability Level of Assist Maximum Assistance,2 Person Assistance,Use of Upper Extremities Gait Assessment Gait Gait Assistance Required: Moderate Assistance,2 Person Assist Distance (Feet) 10 Able to Maintain Weight Bearing Status Yes During Gait Assistive Devices Assistive Device Gait Belt,Front Wheeled Walker Orthotic/Prosthetic Devices or Brace: No Gait Deviations General Gait Pattern Antalgic,Decreased Stride Length,Decreased Feet Clearance,Step-to Gait Factors Limiting Gait Function Factors Limiting Gait Function Decreased Activity Tolerance, Decreased Strength,Limited Range of Motion,Pain,Poor Balance,Poor Safety Awareness M5 PT-IP Objective Assessments Start: 03/18/19 12:14 Freq: NEEDED Status: Active Protocol: Document 03/18/19 09:13 AB (Rec: 03/18/19 12:29 AB [email or web address]) Orientation Orientation/Cognition Level of Alertness Alert Orientation Name,Place,Situation Safety Awareness Decreased Safety Awareness Gross Range of Motion Lower Extremity ROM Assessment Bilaterally Impaired Impairments pain limiting movements Strength Lower Extremity Strength Assessment Bilaterally Impaired Hip 3-/5 Knee 3-/5 Muscle Tone Muscle Tone WNL Yes M6 PT-IP Treatment Start: 03/18/19 12:14 Freq: NEEDED Status: Active Protocol: Document 03/19/19 11:20 GGD (Rec: 03/19/19 12:11 GGD [id number]) Physical Therapy Treatment Education Education Provided Precautions,Safety M7 PT-IP Assessment and Plan Start: 03/18/19 12:14 Freq: NEEDED Status: Active Protocol: Document 03/19/19 14:50 GGD (Rec: 03/19/19 15:39 GGD [id number]) PT Summary Assessment and Plan Summary Assessment Summary Pt able to progress gait short distance. She needed assist and cues for all mobility. She is max A x 2 for mobility. She will need SNF rehab before returning home. Frequency of Treatment Frequency Of Treatment Twice a Day Treatment Plan Physical Therapy Treatment Plan Bed Mobility Training,Transfer Training,Gait Training, Therapeutic Exercise,Balance Retraining,Post Op Education, Discharge Planning,Hot or Cold Pack,Neuromuscular Re-ed, Coordination Retraining,Manual Therapy Recommendations To Nursing Amount of Assist Needed 2 Person Assist Discharge Recommendations PT Discharge Recommendations SNF Rehab
--- NOTE | 2019-03-19 16:33 | OT.IP.TRT ---
Current Diagnoses Spondylolisthesis, lumbar region (03/17/19) Other spondylosis with radiculopathy, lumbosacral region (03/17/19) Spinal stenosis, lumbar region with neurogenic claudication (03/17/19) Surgery Performed Operation Date: 03/17/19 07:45 Actual Procedures p L4-5, L5-S1 TLIF with posterior instrumentation - Cathy Villegas MD Occupational Therapy Treatment Note M2 OT-IP Current Condition Start: 03/18/19 17:26 Freq: Status: Active Protocol: Document 03/18/19 17:27 [facility] (Rec: 03/18/19 17:44 [facility] [email or web address]) Occupational Therapy Current Condition Current Condition Evaluation Date 03/18/19 Treatment Diagnosis S/P L4-5, L5-S1, TLIF with posterior instr Diagnosis Onset Date 03/17/19 Post Operative Precautions Lumbar Precautions Log Roll,No Twisting,Limit Bending,Lifting Restriction of 10 lbs,Gait Belt above Incisional Area Weight Bearing Status Weight Bearing Status Weight Bear as Tolerated M3 OT- IP Subjective and Pain Start: 03/18/19 17:26 Freq: Status: Active Protocol: Document 03/19/19 16:16 CGR (Rec: 03/19/19 16:32 CGR [id number]) OT- Subjective Occupational Therapy Visit Type Type Progress Note Visit Start Time 14:00 Visit Stop Time 14:50 Total Visit Minutes 50 Notes Partial co-treat with P.T. OT Pain Assessment Pain When Pain Assessed During Mobility Pain Present Pain Present Pain Reported Location Back Intensity 10 Scale Used Numeric (1 - 10) Description Burning Management Techniques Distraction,Re-positioning M4 OT- IP ADL's Start: 03/18/19 17:26 Freq: Status: Active Protocol: Document 03/19/19 16:16 CGR (Rec: 03/19/19 16:32 CGR [id number]) OT [id number] Comments OT Self-Feeding Comments Not meal time OT ADL-Grooming General Evaluation Grooming Ability Standby Assistance Areas Needing Assistance Retrieving/Set-up of Grooming Items,Combing/Brushing Hair, Face Washing Comments OT Grooming Comments seated in chair at sink OT ADL-Oral Care General Eval Oral Care Ability Minimal Assistance Areas of Assistance Brushing Teeth,Retrieving/Set- Up of Items Comments Oral Care Comments Pt requested that OT put toothpaste on tooth brush. OT ADL-Dressing Comments OT Dressing Comments Not performed, pt states gown is clean as of this afternoon. OT ADL-Toileting Comments OT Toileting Comments Pt with rosario, declined need for BM OT ADL-Bathing Comments OT Bathing Comments Not performed on this date. M5 OT- IP IADL's Start: 03/18/19 17:26 Freq: Status: Active Protocol: Document 03/18/19 17:27 [facility] (Rec: 03/18/19 17:44 [facility] [email or web address]) OT-Instrumental Activities of Daily Living Home Safety Awareness Home Safety Comments Pt states manages everythng on her own at home. M6 OT- IP Functional Cognition Start: 03/18/19 17:26 Freq: Status: Active Protocol: Document 03/18/19 17:27 [facility] (Rec: 03/18/19 17:44 [facility] [email or web address]) Cognitive Factors Limiting Selfcare Function Cognitive Ability Level of Alertness Alert Patient Orientation Name,Place,Situation Attention Span Ability Capable of Focused Attention, Capable of Sustained Attention Ability to Follow Commands Able to Follow One Step Commands Memory Description Short Term Impaired Safety Awareness Decreased Recall of Precautions,Decreased Ability to Apply Precautions, Underestimates Need for Assistance Problem Solving Ability Needs Assist to Identify Solutions Cognitive Comments Cognitive Assessment Comments Intially only able to recall 1 /3 back preacautions and after education able to recall all. Pt needing vc for safety awreness of how to use FWW to keep it in front of her ut not too close . OT- Vision and Hearing OT- Hearing Assessment OT- Hearing Assessment WFL M7 OT- IP Mobility and Balance Start: 03/18/19 17:26 Freq: Status: Active Protocol: Document 03/19/19 16:16 CGR (Rec: 03/19/19 16:32 CGR [id number]) OT- Bed Mobility Assessment Rolling Type of Rolling Log Rolling Level of Assistance Maximum Assistance,2 Person Assistance Sit to Supine Sit to Supine Assist Maximum Assistance,2 Person Assistance Scooting Scooting to Edge of Bed Maximum Assistance Scooting Up and Down in Bed Maximum Assistance OT-Transfer Assessment Sit to and From Stand Sit to and from Stand Maximum Assistance,2 Person Assistance Transfers Transfer Ability Maximum Assistance,2 Person Assistance Technique Transfer Destination Bed,Chair Transfer Technique Stand Step Pivot Devices Transfer Assistive Devices Gait Belt,Front Wheeled Walker Comments Mobility Comments Pt stood from chair positioned and sink and ambulated approximately 8 feet to the bed with max x 2 and max encouragement. Pt yelled with sit to supine. OT- Gait Assessment Gait Gait Assistance Required: Maximum Assistance,2 Person Assist Assistive Devices Assistive Device Gait Belt,Front Wheeled Walker Comments Gait Ability Comments mobility from chair to bed ~8 feet. Needs max encouragment and reminders to breath through the pain. M8 OT- IP Objective Assessments Start: 03/18/19 17:26 Freq: Status: Active Protocol: Document 03/18/19 17:27 [facility] (Rec: 03/18/19 17:44 [facility] [email or web address]) OT Gross Range of Motion Upper Extremity Range of Motion Assessment Within Functional Limits OT Strength Upper Extremity Strength Assessment Within Functional Limits M9 OT- IP Assessment and Plan Start: 03/18/19 17:26 Freq: Status: Active Protocol: Document 03/19/19 16:16 CGR (Rec: 03/19/19 16:32 CGR [id number]) OT Summary Assessment and Plan Potential Rehabilitation Potential Good Analytic Complexity at Evaluation Low Summary OT Impairments Pain,Balance,Functional Mobility,Grooming,Dressing, Toileting,Bathing,Toilet Transfers,Shower Transfers Progress Towards Goals Slow Progress due to Pain,Slow Progress due to Activity Tolerance Assessment Summary Pt presents with significant pain with all activity. Pt also yells with increased pain but was able to participate in todays session. Will continue to benefit from OT services. Will needs SNF d/t 2 person assist for mobility at this time. Goals Grooming Goal Standby Assistance Dressing Goal Standby Assistance Toileting Goal Standby Assistance Bathing Goal Minimal Assistance Toilet Transfer Goal Standby Assistance Shower Transfer Goal Minimal Assistance Days to Meet Goals 9 Frequency of Treatment Frequency Of Treatment Once a Day Treatment Plan OT Treatment Plan ADL Training,Functional Cognition Training,Functional Mobility,Patient/Family Education,Discharge Planning Other Treatment Recommendations and Next lower body dressing needs Treatment Focus Discharge Recommendations OT Discharge Recommendations SNF Rehab Home Equipment Needs Tub bench
[2019-03-19] MEDS: HYDROMORPHONE 0.5 MG INJ IV (19:01)
[2019-03-19] MEDS: SENNOSIDES 8.6 MG TABLET 17.2 MG PO (20:39)
--- NOTE | 2019-03-19 23:48 | PC.NURSE ---
Pt. adamantly refused to wear her SCD's. States I know what it's for to promote circulation & prevent any blood clots. I have multiple surgeries & I been fine. Every time the machine pumps & squeeze my legs, I'm having legs spasms. Informed I can medicate her with Vistaril for legs spasms but she still declined her SCD's. Also refused to repositioned, states I'm okay right now. Denies any Rt. flank & back pain. Encouraged to call RN. if she needed any pain relief. Will cont. POC & monitor.
[2019-03-20] VITALS (7 sets, daily range): BP systolic 114–154; BP diastolic 52–72; PULSE 76–98; RESP 14–20; TEMP 36.3–36.9; O2SAT 87–95
[2019-03-20] MEDS: hydrOXYzine pamoate 25 MG CAPSULE PO ×3 (02:12→14:06)
[2019-03-20] MEDS: OXYCODONE IR 5 MG TABLET PO (02:12)
[2019-03-20] MEDS: HYDROMORPHONE 0.5 MG INJ IV (03:58)
[2019-03-20] MEDS: SODIUM CHLORIDE 0.9% FLUSH 10 ML IV ×4 (03:59→23:38)
[2019-03-20 05:24] LABS: Hematocrit 26.3 % (36-46); Hemoglobin 8.8 g/dL (12.0-16.0)
[2019-03-20] MEDS: OXYCODONE IR 5 MG TABLET 10 MG PO ×5 (06:23→22:47)
--- NOTE | 2019-03-20 06:47 | PC.NURSE ---
Declined to have abraham discontinue, states I'll wait later this morning, when I get up. Will report to day RN.
[2019-03-20] MEDS: hydroCHLOROthiazide 25 MG TABLET PO (08:23)
[2019-03-20] MEDS: OXYCODONE ER 10 MG TAB PO ×2 (08:23→20:59)
[2019-03-20] MEDS: ACETAMINOPHEN 325 MG TABLET 650 MG PO (08:23)
[2019-03-20] MEDS: AMLODIPINE 5 MG TABLET 10 MG PO (08:23)
[2019-03-20] MEDS: LOSARTAN 50 MG TABLET PO ×2 (08:23→20:58)
[2019-03-20] MEDS: DOCUSATE 100 MG CAPSULE PO ×2 (08:23→20:58)
--- NOTE | 2019-03-20 09:44 | PM.PNPO.1 ---
Subjective Subjective Date Patient Seen: 03/20/19 Time Patient Seen: 09:45 Interval history: POD #3 s/p L4-S1 TLIF with Dr. Villegas patient has had significant pain control issues. Biggest complaint is pain down both legs. She has had this preoperatively and has exacerbated since surgery. She did have a wound on her left leg preoperatively and dressing was last changed on . Dressing has remained dry. Patient is taking gabapentin in the past but complains that it did not help which is why she has not taken any yet while here. She still has Lee in place. Exam Vital Signs (past 8 hours): - 03/20/19 04:05 Temperature 98.4 F Pulse Rate 90 Respiratory Rate 16 Blood Pressure 129/60 Pulse Oximetry 93 Fraction of Inspired Oxygen 32 Oxygen Delivery Method Room Air Oxygen Flow Rate 2 Narrative Exam Narrative: Patient lying in bed in no acute distress. She is alert and orient x3. Calves are soft, compressible and nontender bilaterally. Dressing on left leg is CDI. Sensation intact to light touch of bilateral lower extremities. She is able to actively dorsiflex plantar flex. Pulses are symmetrical. Patient refusing to wear SCDs. Objective Labs Result Diagrams: 03/20/19 04:50 Labs: Laboratory Results - last 24 hr 03/20/19 04:50 Hgb 8.8 L Hct 26.3 L Assessment & Plan Post-op Assessment and plan (1) S/P lumbar fusion: Postoperative Procedures: Procedures Operation Date: 03/17/19 07:45 Actual Procedures Side Surgeon p L4-5, L5-S1 TLIF with posterior instrumentation Cathy Villegas MD Patient refusing SCDs for DVT prophylaxis. Will start her on aspirin 81 mg daily. Encouraged patient to take gabapentin, especially since she is having radiculopathy. Patient will start Decadron 4 mg every 6 hours for 5 doses. Patient will have Lee catheter removed today. Continue physical therapy with no excessive bending, lifting, or twisting. Patient will require SNF for continued recovery after surgery. Goal will be to discharge to SNF tomorrow.
[2019-03-20] MEDS: GABAPENTIN 300 MG CAPSULE PO ×2 (10:33→16:40)
[2019-03-20] MEDS: ASPIRIN EC 81 MG TABLET PO (10:33)
[2019-03-20] MEDS: DEXAMETHASONE 4 MG/ML VIAL IV ×3 (10:33→23:38)
--- NOTE | 2019-03-20 12:10 | PT.IPTN ---
Current Diagnoses Spondylolisthesis, lumbar region (03/17/19) Other spondylosis with radiculopathy, lumbosacral region (03/17/19) Spinal stenosis, lumbar region with neurogenic claudication (03/17/19) Arthrodesis status (03/17/19) Surgery Performed Operation Date: 03/17/19 07:45 Actual Procedures p L4-5, L5-S1 TLIF with posterior instrumentation - Cathy Villegas MD Physical Therapy Treatment Note M2 PT-IP Current Condition Start: 03/18/19 12:14 Freq: NEEDED Status: Active Protocol: Document 03/18/19 09:13 AB (Rec: 03/18/19 12:29 AB [email or web address]) Physical Therapy Current Condition Current Condition Evaluation Date 03/18/19 Treatment Diagnosis s/p L4-5, L5S1 fusion; difficulty in walking Onset Date 03/17/19 Precautions Lumbar Precautions Log Roll,No Twisting,Limit Bending,Lifting Restriction of 10 lbs,Gait Belt above Incisional Area M3 PT-IP Subjective Start: 03/18/19 12:14 Freq: NEEDED Status: Active Protocol: Document 03/20/19 12:10 DLM (Rec: 03/20/19 12:34 DL [id number]) Subjective Physical Therapy Visit Type Type Treatment Note Visit Start Time 11:30 Visit Stop Time 12:10 Total Visit Minutes 40 Notes co-treated with OT to manage pt's pain and limited activity tolerance Number of MACHINE OPERATOR PACKAGING Visits 0 Physical Therapy Visit Comments Patient Comments She understands she needs SNF rehab. C/o a lot of leg cramping today. She reports she just has to yell out when the pain becomes too severe. Patient Goals go home Therapy Pain Assessment Pain When Pain Assessed After Treatment Pain Present Pain Present Pain Reported Location Back Intensity 5 Scale Used Numeric (1 - 10) Description Aching,Cramping,Pulling, Stabbing Pain Behaviors Calling Out,Facial Grimacing, Guarding,Holding Area Pain Management Techniques Re-positioning,Timing of Activity with Medications M4 PT-IP Mobility and Gait Start: 03/18/19 12:14 Freq: NEEDED Status: Active Protocol: Document 03/20/19 12:10 DLM (Rec: 03/20/19 12:34 DLM [id number]) PT-Bed Mobility Assessment Rolling Type of Rolling Log Rolling Level of Assist Moderate Assistance,2 Person Assistance Supine to Sit Supine to Sit Moderate Assistance,Maximum Assistance,2 Person Assistance ,Bedrails Scooting Scooting to Edge of Bed Dependent Scooting Up and Down in Bed Dependent PT-Transfer Assessment Sit to and From Stand Sit to and from Stand Minimal Assistance,Moderate Assistance,2 Person Assistance ,Use of Upper Extremities Equipment Transfer Assistive Device Gait Belt,Front Wheeled Walker Transfers Transfer Destination Chair Transfer Technique Stand Step Pivot Transfer Ability Level of Assist Minimal Assistance,Moderate Assistance,2 Person Assistance ,Use of Upper Extremities Comments Mobility Comments small steps, flexed posture over FWW, unable to fully step back and had to have chair pulled up behind her. Pt left sitting up in recliner with call light close and set up for lunch. Gait Assessment Comments Gait Comments pt unable to amb today, only made it to the chair with transfer, very slow pace for all mobiliyt M5 PT-IP Objective Assessments Start: 03/18/19 12:14 Freq: NEEDED Status: Active Protocol: Document 03/18/19 09:13 AB (Rec: 03/18/19 12:29 AB [id number]) Orientation Orientation/Cognition Level of Alertness Alert Orientation Name,Place,Situation Safety Awareness Decreased Safety Awareness Gross Range of Motion Lower Extremity ROM Assessment Bilaterally Impaired Impairments pain limiting movements Strength Lower Extremity Strength Assessment Bilaterally Impaired Hip 3-/5 Knee 3-/5 Muscle Tone Muscle Tone WNL Yes M6 PT-IP Treatment Start: 03/18/19 12:14 Freq: NEEDED Status: Active Protocol: Document 03/20/19 12:10 DLM (Rec: 03/20/19 12:34 DL [id number]) Physical Therapy Treatment Education Education Provided Precautions,Safety M7 PT-IP Assessment and Plan Start: 03/18/19 12:14 Freq: NEEDED Status: Active Protocol: Document 03/20/19 12:10 DLM (Rec: 03/20/19 12:34 DL [id number]) PT Summary Assessment and Plan Summary Impairments Pain,ROM,Strength,Balance, Coordination,Sensation,Tone, Cognition,Bed Mobility, Transfers,Gait,Activity Tolerance Progress Towards Goals Slow Progress due to Pain,Slow Progress due to Activity Tolerance Assessment Summary Zelda is alert but continues to need two person assist for all mobility. Her pain interferes with all activity. Pt able to transfer up to recliner today but unable to ambulate. She c/o LE cramping that makes it harder for her to ambulate. Continue to recommend SNF. Anticipate her progress will continue to be slow post-op. Goals Bed Mobility Goal Contact Guard Assistance Transfer Goal Contact Guard Assistance,Front Wheeled Walker Gait Goal Contact Guard Assistance,Front Wheel Walker Gait Distance 100 Other Goals up/down 2 steps R rail CGA Days to Meet Goals 5 Frequency of Treatment Frequency Of Treatment Twice a Day Treatment Plan Physical Therapy Treatment Plan Bed Mobility Training,Transfer Training,Gait Training, Therapeutic Exercise,Balance Retraining,Post Op Education, Discharge Planning,Hot or Cold Pack,Neuromuscular Re-ed, Coordination Retraining,Manual Therapy Recommendations To Nursing Amount of Assist Needed 2 Person Assist Discharge Recommendations PT Discharge Recommendations SNF Rehab
--- NOTE | 2019-03-20 13:42 | OT.IP.TRT ---
Current Diagnoses Spondylolisthesis, lumbar region (03/17/19) Other spondylosis with radiculopathy, lumbosacral region (03/17/19) Spinal stenosis, lumbar region with neurogenic claudication (03/17/19) Arthrodesis status (03/17/19) Surgery Performed Operation Date: 03/17/19 07:45 Actual Procedures p L4-5, L5-S1 TLIF with posterior instrumentation - Cathy Villegas MD Occupational Therapy Treatment Note M2 OT-IP Current Condition Start: 03/18/19 17:26 Freq: Status: Active Protocol: Document 03/18/19 17:27 [facility] (Rec: 03/18/19 17:44 [facility] [email or web address]) Occupational Therapy Current Condition Current Condition Evaluation Date 03/18/19 Treatment Diagnosis S/P L4-5, L5-S1, TLIF with posterior instr Diagnosis Onset Date 03/17/19 Post Operative Precautions Lumbar Precautions Log Roll,No Twisting,Limit Bending,Lifting Restriction of 10 lbs,Gait Belt above Incisional Area Weight Bearing Status Weight Bearing Status Weight Bear as Tolerated M3 OT- IP Subjective and Pain Start: 03/18/19 17:26 Freq: Status: Active Protocol: Document 03/20/19 13:35 [facility] (Rec: 03/20/19 13:42 [facility] [email or web address]) OT- Subjective Occupational Therapy Visit Type Type Progress Note Visit Start Time 11:37 Visit Stop Time 12:12 Total Visit Minutes 35 Notes Co-treat with P.T. for limited endurance and safety. Occupational Therapy Visit Comments Patient Comments That wasn't as bad as I thought it would be. in regards to todays movement. OT Pain Assessment Pain When Pain Assessed At Rest Pain Present Pain Present Pain Reported Location Back Intensity 5 Scale Used Numeric (1 - 10) Pain Behaviors Calling Out Management Techniques Distraction,Re-positioning, Timing of Activity with Medications M4 OT- IP ADL's Start: 03/18/19 17:26 Freq: Status: Active Protocol: Document 03/20/19 13:35 [facility] (Rec: 03/20/19 13:42 [facility] [email or web address]) OT DIV-Svzj-Gtndndy General Evaluation Self-Feeding Ability Independent Comments OT Self-Feeding Comments Lunch arrived at end of session. OT ADL-Grooming General Evaluation Grooming Ability Standby Assistance Areas Needing Assistance Face Washing Comments OT Grooming Comments Pt was able to wash face with SBA seated in chair. OT ADL-Oral Care Comments Oral Care Comments Not performed on this date d/t lunch arrival. OT ADL-Dressing General Eval Lower Body Dressing Ability Total Assistance Areas Needing Assistance Socks OT ADL-Toileting Comments OT Toileting Comments Pt states she may need to use the bathroom but declines to transfer to the [facility]. OT ADL-Bathing Comments OT Bathing Comments Not performed on this date. M5 OT- IP IADL's Start: 03/18/19 17:26 Freq: Status: Active Protocol: Document 03/18/19 17:27 [facility] (Rec: 03/18/19 17:44 [facility] [email or web address]) OT-Instrumental Activities of Daily Living Home Safety Awareness Home Safety Comments Pt states manages everythng on her own at home. M6 OT- IP Functional Cognition Start: 03/18/19 17:26 Freq: Status: Active Protocol: Document 03/18/19 17:27 [facility] (Rec: 03/18/19 17:44 [facility] [email or web address]) Cognitive Factors Limiting Selfcare Function Cognitive Ability Level of Alertness Alert Patient Orientation Name,Place,Situation Attention Span Ability Capable of Focused Attention, Capable of Sustained Attention Ability to Follow Commands Able to Follow One Step Commands Memory Description Short Term Impaired Safety Awareness Decreased Recall of Precautions,Decreased Ability to Apply Precautions, Underestimates Need for Assistance Problem Solving Ability Needs Assist to Identify Solutions Cognitive Comments Cognitive Assessment Comments Intially only able to recall 1 /3 back preacautions and after education able to recall all. Pt needing vc for safety awreness of how to use FWW to keep it in front of her ut not too close . OT- Vision and Hearing OT- Hearing Assessment OT- Hearing Assessment WFL M7 OT- IP Mobility and Balance Start: 03/18/19 17:26 Freq: Status: Active Protocol: Document 03/20/19 13:35 [facility] (Rec: 03/20/19 13:42 [facility] [email or web address]) OT- Bed Mobility Assessment Rolling Level of Assistance Moderate Assistance,2 Person Assistance,Bedrails Supine to Sit Supine to Sit Assist Moderate Assistance,Maximum Assistance,2 Person Assistance ,Bedrails Scooting Scooting to Edge of Bed Total Assistance,2 Person Assistance OT-Transfer Assessment Sit to and From Stand Sit to and from Stand Minimal Assistance,Moderate Assistance,2 Person Assistance Transfers Transfer Ability Minimal Assistance,Moderate Assistance,2 Person Assistance Technique Transfer Destination Bed,Chair Transfer Technique Stand Step Pivot Devices Transfer Assistive Devices Gait Belt,Front Wheeled Walker Comments Mobility Comments Pt needed max encouragement throughout the session for mobility. Difficulty picking up feet and needs to be refocused. States spasms to the LLE. OT- Balance Assessment Sitting Balance and Reactions Static Sitting Balance Ability Fair Dynamic Sitting Balance Ability Poor M8 OT- IP Objective Assessments Start: 03/18/19 17:26 Freq: Status: Active Protocol: Document 03/18/19 17:27 [facility] (Rec: 03/18/19 17:44 [facility] [email or web address]) OT Gross Range of Motion Upper Extremity Range of Motion Assessment Within Functional Limits OT Strength Upper Extremity Strength Assessment Within Functional Limits M9 OT- IP Assessment and Plan Start: 03/18/19 17:26 Freq: Status: Active Protocol: Document 03/20/19 13:35 [facility] (Rec: 03/20/19 13:42 [facility] [email or web address]) OT Summary Assessment and Plan Potential Rehabilitation Potential Good Analytic Complexity at Evaluation Low Summary OT Impairments Pain,Balance,Functional Mobility,Grooming,Dressing, Toileting,Bathing,Toilet Transfers,Shower Transfers Progress Towards Goals Slow Progress due to Pain,Slow Progress due to Activity Tolerance Assessment Summary Pt presents with significant pain with all activity but states that today went better than she thought it would. Will continue to benefit from OT services. Will needs SNF d/ t 2 person assist for mobility at this time. Goals Grooming Goal Standby Assistance Dressing Goal Standby Assistance Toileting Goal Standby Assistance Bathing Goal Minimal Assistance Toilet Transfer Goal Standby Assistance Shower Transfer Goal Minimal Assistance Days to Meet Goals 8 Frequency of Treatment Frequency Of Treatment Once a Day Treatment Plan OT Treatment Plan ADL Training,Functional Cognition Training,Functional Mobility,Patient/Family Education,Discharge Planning Other Treatment Recommendations and Next lower body dressing needs Treatment Focus Discharge Recommendations OT Discharge Recommendations SNF Rehab Home Equipment Needs Tub bench
--- NOTE | 2019-03-20 15:18 | PT.IPTN ---
Current Diagnoses Spondylolisthesis, lumbar region (03/17/19) Other spondylosis with radiculopathy, lumbosacral region (03/17/19) Spinal stenosis, lumbar region with neurogenic claudication (03/17/19) Arthrodesis status (03/17/19) Surgery Performed Operation Date: 03/17/19 07:45 Actual Procedures p L4-5, L5-S1 TLIF with posterior instrumentation - Cathy Villegas MD Physical Therapy Treatment Note M2 PT-IP Current Condition Start: 03/18/19 12:14 Freq: NEEDED Status: Active Protocol: Document 03/18/19 09:13 [facility] (Rec: 03/18/19 12:29 [facility] [email or web address]) Physical Therapy Current Condition Current Condition Evaluation Date 03/18/19 Treatment Diagnosis s/p L4-5, L5S1 fusion; difficulty in walking Onset Date 03/17/19 Precautions Lumbar Precautions Log Roll,No Twisting,Limit Bending,Lifting Restriction of 10 lbs,Gait Belt above Incisional Area M3 PT-IP Subjective Start: 03/18/19 12:14 Freq: NEEDED Status: Active Protocol: Document 03/20/19 15:18 [facility] (Rec: 03/20/19 17:38 [facility] [id number]) Subjective Physical Therapy Visit Type Type Treatment Note Visit Start Time 14:50 Visit Stop Time 15:18 Total Visit Minutes 28 Notes coordinated treatment with nursing for pt safety Number of ORACLE ARCHITECT Visits 0 Physical Therapy Visit Comments Patient Comments She needs to urinate Patient Goals go home Therapy Pain Assessment Pain When Pain Assessed After Treatment Pain Present Pain Present Pain Reported Location Back Intensity 5 Scale Used Numeric (1 - 10) Description Aching,Cramping,Pulling, Stabbing Pain Behaviors Calling Out,Facial Grimacing, Guarding,Holding Area Pain Management Techniques Re-positioning,Timing of Activity with Medications M4 PT-IP Mobility and Gait Start: 03/18/19 12:14 Freq: NEEDED Status: Active Protocol: Document 03/20/19 15:18 [facility]LM (Rec: 03/20/19 17:38 [facility] [id number]) PT-Bed Mobility Assessment Rolling Type of Rolling Log Rolling Level of Assist Moderate Assistance Supine to Sit Supine to Sit Moderate Assistance,2 Person Assistance,Bedrails Sit to Supine Sit to Supine Minimal Assistance,Moderate Assistance,2 Person Assistance Scooting Scooting to Edge of Bed Minimal Assistance PT-Transfer Assessment Sit to and From Stand Sit to and from Stand Minimal Assistance,Moderate Assistance,1 Person Assistance ,Use of Upper Extremities Equipment Transfer Assistive Device Gait Belt,Front Wheeled Walker Transfers Transfer Destination Bed,Bedside Commode Transfer Technique Stand Step Pivot Transfer Ability Level of Assist Minimal Assistance,Use of Upper Extremities Comments Mobility Comments improved ability to take steps , mild forward flexion on FWW, intermittent help needed to manage the FWW, slow pace with movement but improved from this AM Gait Assessment Gait Gait Assistance Required: Minimum Assistance,Moderate Assistance,1 Person Assist Distance (Feet) 10 Assistive Devices Assistive Device Gait Belt,Front Wheeled Walker Gait Deviations General Gait Pattern Decreased Stride Length,Flexed Trunk Factors Limiting Gait Function Factors Limiting Gait Function Decreased Activity Tolerance, Decreased Strength,Pain,Poor Balance Comments Gait Comments stand by of second person during gait for safety M5 PT-IP Objective Assessments Start: 03/18/19 12:14 Freq: NEEDED Status: Active Protocol: Document 03/18/19 09:13 AB (Rec: 03/18/19 12:29 AB [email or web address]) Orientation Orientation/Cognition Level of Alertness Alert Orientation Name,Place,Situation Safety Awareness Decreased Safety Awareness Gross Range of Motion Lower Extremity ROM Assessment Bilaterally Impaired Impairments pain limiting movements Strength Lower Extremity Strength Assessment Bilaterally Impaired Hip 3-/5 Knee 3-/5 Muscle Tone Muscle Tone WNL Yes M6 PT-IP Treatment Start: 03/18/19 12:14 Freq: NEEDED Status: Active Protocol: Document 03/20/19 15:18 DLM (Rec: 03/20/19 17:38 [facility] [id number]) Physical Therapy Treatment Education Education Provided Precautions,Safety M7 PT-IP Assessment and Plan Start: 03/18/19 12:14 Freq: NEEDED Status: Active Protocol: Document 03/20/19 15:18 DLM (Rec: 03/20/19 17:38 [facility] [id number]) PT Summary Assessment and Plan Summary Impairments Pain,ROM,Strength,Balance, Coordination,Sensation,Tone, Cognition,Bed Mobility, Transfers,Gait,Activity Tolerance Progress Towards Goals Slow Progress due to Pain,Slow Progress due to Activity Tolerance Assessment Summary Patient shows good progress this afternoon with less pain. She tolerated using the bedside commode to urinate and ambulating around the bed with FWW and one person assist . She continues to have increased pain with bed mobility which requires two person assist to manage. Less yelling out noted this visit and pt in better spirits. Goals Bed Mobility Goal Contact Guard Assistance Transfer Goal Contact Guard Assistance,Front Wheeled Walker Gait Goal Contact Guard Assistance,Front Wheel Walker Gait Distance 100 Other Goals up/down 2 steps R rail CGA Days to Meet Goals 5 Frequency of Treatment Frequency Of Treatment Twice a Day Treatment Plan Physical Therapy Treatment Plan Bed Mobility Training,Transfer Training,Gait Training, Therapeutic Exercise,Balance Retraining,Post Op Education, Discharge Planning,Hot or Cold Pack,Neuromuscular Re-ed, Coordination Retraining,Manual Therapy Recommendations To Nursing Amount of Assist Needed 2 Person Assist Discharge Recommendations PT Discharge Recommendations SNF Rehab
--- NOTE | 2019-03-20 15:19 | CM.IDA ---
Initial DCP Assessment Note: Pt is a 78 yo resident of [facility]. Pt POD#3 from spinal surgery w/ Dr Villegas. PCP: Carlo Akins Payer: Medicare/[employer] Met w/pt, explained SW role. Pt is mod indp at baseline and uses a cane with ambulation, lives in a house w/her son. Pt was hopeful she could return home but is agreeable to [facility] before return home since the therapy team is recommending and this facility is down the [address] from her home. Pt has family and friends that can check on her but are not able to stay with her, adult children work. Placed call to Kerry at [facility], discussed referral and faxed SNF packet to her. Pt has been accepted for anticipated DC tomorrow. Ortho PA changing pt's meds today in hopes for better pain control. LUIS EDUARDO Gu
[2019-03-20] MEDS: CYCLOBENZAPRINE 10 MG TABLET PO (19:37)
[2019-03-20] MEDS: SENNOSIDES 8.6 MG TABLET 17.2 MG PO (20:58)
--- NOTE | 2019-03-21 03:16 | PC.NURSE ---
Desats. to 78-84 in RA while sleeping, 1 liter 02/NC initiated & SPO2 in 1 liter 94%. Did not C/O pain when assessed & when she got up to BSC. Will cont. POC & monitor.
[2019-03-21 04:25] VITALS: BP 110/63; PULSE 65; RESP 18; TEMP 36.6; O2SAT 97
[2019-03-21] MEDS: OXYCODONE IR 5 MG TABLET 10 MG PO ×2 (05:48→16:47)
[2019-03-21] MEDS: DEXAMETHASONE 4 MG/ML VIAL IV ×2 (05:50→11:49)
--- NOTE | 2019-03-21 06:49 | PC.NURSE ---
Declined Dulcolax suppository, states I'm passing gas, I'll be okay. Will report to day RN.
[2019-03-21 08:00] VITALS: BP 112/78; PULSE 72; RESP 18; TEMP 36.7; O2SAT 91
[2019-03-21] MEDS: OXYCODONE ER 10 MG TAB PO ×2 (08:54→21:03)
[2019-03-21] MEDS: AMLODIPINE 5 MG TABLET 10 MG PO (08:55)
[2019-03-21] MEDS: DOCUSATE 100 MG CAPSULE PO ×2 (08:55→21:02)
[2019-03-21] MEDS: LOSARTAN 50 MG TABLET PO ×2 (08:56→21:02)
[2019-03-21] MEDS: hydroCHLOROthiazide 25 MG TABLET PO (08:56)
[2019-03-21] MEDS: ASPIRIN EC 81 MG TABLET PO (08:56)
[2019-03-21] MEDS: SODIUM CHLORIDE 0.9% FLUSH 10 ML IV (08:57)
[2019-03-21 09:00] VITALS: O2SAT 94
--- NOTE | 2019-03-21 09:21 | P.PN_ITS ---
Subjective Subjective Date Patient Seen: 03/21/19 Time Patient Seen: 09:22 Interval history: The patient reports she is doing much better after her dose of steroid and Flexeril. She has much comfortable in bed and is able to do some stuff with physical therapy. Exam Vital Signs (past 8 hours): - 03/21/19 04:25 Temperature 97.9 F Pulse Rate 65 Respiratory Rate 18 Blood Pressure 110/63 Pulse Oximetry 97 Fraction of Inspired Oxygen 32 Oxygen Delivery Method Room Air Oxygen Flow Rate 1 Narrative Exam Narrative: Dressing is clean and dry. Lower extremities are fully neurovascularly intact. Expected swelling. Objective Labs Result Diagrams: 03/20/19 04:50 Assessment & Plan Post-op Postoperative Procedures: Procedures Operation Date: 03/17/19 07:45 Actual Procedures Side Surgeon p L4-5, L5-S1 TLIF with posterior instrumentation Cathy Villegas MD Postoperative day: 4 Postoperative status: doing well Postoperative status narrative: The patient has made excellent progress from yesterday. Plan to discharge to long term facility tomorrow.
--- NOTE | 2019-03-21 11:22 | PC.NURSE ---
Patient currently ambulating in the wills with PT. Patient reports feeling significantly better, denies pain or SOB at this time.
--- NOTE | 2019-03-21 11:42 | CM.DANOTE ---
Spoke with Cristhian regarding SNF placement. is aware bed is available today. Tomorrow d/c plan to be maintained.
[2019-03-21] MEDS: BISACODYL 10 MG SUPP PR (11:49)
[2019-03-21 12:00] VITALS: BP 124/77; PULSE 82; RESP 18; TEMP 36.7; O2SAT 92
--- NOTE | 2019-03-21 12:07 | PT.IPTN ---
Current Diagnoses Spondylolisthesis, lumbar region (03/17/19) Other spondylosis with radiculopathy, lumbosacral region (03/17/19) Spinal stenosis, lumbar region with neurogenic claudication (03/17/19) Arthrodesis status (03/17/19) Surgery Performed Operation Date: 03/17/19 07:45 Actual Procedures p L4-5, L5-S1 TLIF with posterior instrumentation - Cathy Villegas MD Physical Therapy Treatment Note M2 PT-IP Current Condition Start: 03/18/19 12:14 Freq: NEEDED Status: Active Protocol: Document 03/18/19 09:13 AB (Rec: 03/18/19 12:29 AB [email or web address]) Physical Therapy Current Condition Current Condition Evaluation Date 03/18/19 Treatment Diagnosis s/p L4-5, L5S1 fusion; difficulty in walking Onset Date 03/17/19 Precautions Lumbar Precautions Log Roll,No Twisting,Limit Bending,Lifting Restriction of 10 lbs,Gait Belt above Incisional Area M3 PT-IP Subjective Start: 03/18/19 12:14 Freq: NEEDED Status: Active Protocol: Document 03/21/19 11:58 AW (Rec: 03/21/19 12:07 AW [id number]) Subjective Physical Therapy Visit Type Type Treatment Note Visit Start Time 10:57 Visit Stop Time 11:30 Total Visit Minutes 33 Number of RECEIVER STOCKER Visits 0 Physical Therapy Visit Comments Patient Comments Pt would like to try going to the bathroom Therapy Pain Assessment Pain When Pain Assessed During Mobility Pain Present Pain Present Denied Pain M4 PT-IP Mobility and Gait Start: 03/18/19 12:14 Freq: NEEDED Status: Active Protocol: Document 03/21/19 11:58 AW (Rec: 03/21/19 12:07 AW [id number]) PT-Bed Mobility Assessment Rolling Type of Rolling Log Rolling Level of Assist Minimal Assistance Supine to Sit Supine to Sit Minimal Assistance Sit to Supine Sit to Supine Minimal Assistance Scooting Scooting to Edge of Bed Contact Guard Assistance PT-Transfer Assessment Sit to and From Stand Sit to and from Stand Minimal Assistance,1 Person Assistance,Use of Upper Extremities Equipment Transfer Assistive Device Gait Belt,Front Wheeled Walker Orthotic/Prosthetic Devices or Brace: No Transfers Transfer Destination Bed,Toilet Transfer Technique Pt ambulated 10 feet to toilet Transfer Ability Level of Assist Minimal Assistance,1 Person Assistance,Use of Upper Extremities Comments Mobility Comments forward flexion with FWW. Pt able to manage FWW without direction today, but does require occasional cues to turn in concert with FWW to avoid twisting Gait Assessment Gait Gait Assistance Required: Contact Guard Assist,1 Person Assist Distance (Feet) 80 Assistive Devices Assistive Device Gait Belt,Front Wheeled Walker Gait Deviations General Gait Pattern Decreased Stride Length,Flexed Trunk Factors Limiting Gait Function Factors Limiting Gait Function Decreased Activity Tolerance, Decreased Strength,Pain,Poor Balance Comments Gait Comments Pt feeling much better today, reporting little to no pain. Able to increase gait distance with FWW M5 PT-IP Objective Assessments Start: 03/18/19 12:14 Freq: NEEDED Status: Active Protocol: Document 03/18/19 09:13 AB (Rec: 03/18/19 12:29 AB [email or web address]) Orientation Orientation/Cognition Level of Alertness Alert Orientation Name,Place,Situation Safety Awareness Decreased Safety Awareness Gross Range of Motion Lower Extremity ROM Assessment Bilaterally Impaired Impairments pain limiting movements Strength Lower Extremity Strength Assessment Bilaterally Impaired Hip 3-/5 Knee 3-/5 Muscle Tone Muscle Tone WNL Yes M6 PT-IP Treatment Start: 03/18/19 12:14 Freq: NEEDED Status: Active Protocol: Document 03/20/19 15:18 DLM (Rec: 03/20/19 17:38 [facility] [id number]) Physical Therapy Treatment Education Education Provided Precautions,Safety M7 PT-IP Assessment and Plan Start: 03/18/19 12:14 Freq: NEEDED Status: Active Protocol: Document 03/21/19 11:58 AW (Rec: 03/21/19 12:07 AW [id number]) PT Summary Assessment and Plan Summary Impairments Pain,ROM,Strength,Balance, Coordination,Sensation,Tone, Cognition,Bed Mobility, Transfers,Gait,Activity Tolerance Progress Towards Goals Slow Progress due to Pain,Slow Progress due to Activity Tolerance Assessment Summary Pt with greatly increased activity tolerance today due to decreased pain. She ambulated using FWW CGA to toilet and in the hallway ~80 feet. PT continues to recommend SNF rehab stay to increase strength, activity tolerance, and safety in the home. Goals Bed Mobility Goal Contact Guard Assistance Transfer Goal Contact Guard Assistance,Front Wheeled Walker Gait Goal Contact Guard Assistance,Front Wheel Walker Gait Distance 100 Other Goals up/down 2 steps R rail CGA Days to Meet Goals 5 Frequency of Treatment Frequency Of Treatment Twice a Day Treatment Plan Physical Therapy Treatment Plan Bed Mobility Training,Transfer Training,Gait Training, Therapeutic Exercise,Balance Retraining,Post Op Education, Discharge Planning,Hot or Cold Pack,Neuromuscular Re-ed, Coordination Retraining,Manual Therapy Recommendations To Nursing Amount of Assist Needed 1 Person Assist Discharge Recommendations PT Discharge Recommendations SNF Rehab
[2019-03-21] MEDS: hydrOXYzine pamoate 25 MG CAPSULE PO (14:03)
[2019-03-21] MEDS: ACETAMINOPHEN 325 MG TABLET 650 MG PO (14:03)
[2019-03-21 16:00] VITALS: BP 110/81; PULSE 76; RESP 16; TEMP 37; O2SAT 96
--- NOTE | 2019-03-21 16:04 | PT.IPTN ---
Current Diagnoses Spondylolisthesis, lumbar region (03/17/19) Other spondylosis with radiculopathy, lumbosacral region (03/17/19) Spinal stenosis, lumbar region with neurogenic claudication (03/17/19) Arthrodesis status (03/17/19) Surgery Performed Operation Date: 03/17/19 07:45 Actual Procedures p L4-5, L5-S1 TLIF with posterior instrumentation - Cathy Villegas MD Physical Therapy Treatment Note M2 PT-IP Current Condition Start: 03/18/19 12:14 Freq: NEEDED Status: Active Protocol: Document 03/18/19 09:13 AB (Rec: 03/18/19 12:29 AB [email or web address]) Physical Therapy Current Condition Current Condition Evaluation Date 03/18/19 Treatment Diagnosis s/p L4-5, L5S1 fusion; difficulty in walking Onset Date 03/17/19 Precautions Lumbar Precautions Log Roll,No Twisting,Limit Bending,Lifting Restriction of 10 lbs,Gait Belt above Incisional Area M3 PT-IP Subjective Start: 03/18/19 12:14 Freq: NEEDED Status: Active Protocol: Document 03/21/19 15:22 CLB (Rec: 03/21/19 16:04 CLB [id number]) Subjective Physical Therapy Visit Type Type Treatment Note Visit Start Time 15:22 Visit Stop Time 15:53 Total Visit Minutes 31 Number of BARKEEP Visits 1 Physical Therapy Visit Comments Patient Comments Pt agreeable to ambulate but needs to use the toilet first. Therapy Pain Assessment Pain When Pain Assessed During Mobility Pain Present Pain Present Denied Pain M4 PT-IP Mobility and Gait Start: 03/18/19 12:14 Freq: NEEDED Status: Active Protocol: Document 03/21/19 15:22 CLB (Rec: 03/21/19 16:04 CLB [id number]) PT-Bed Mobility Assessment Rolling Type of Rolling Log Rolling Level of Assist Minimal Assistance Supine to Sit Supine to Sit Minimal Assistance Sit to Supine Sit to Supine Minimal Assistance Scooting Scooting to Edge of Bed Contact Guard Assistance PT-Transfer Assessment Sit to and From Stand Sit to and from Stand Minimal Assistance,1 Person Assistance,Use of Upper Extremities Equipment Transfer Assistive Device Gait Belt,Front Wheeled Walker Orthotic/Prosthetic Devices or Brace: No Transfers Transfer Destination Bed,Toilet Transfer Ability Level of Assist Minimal Assistance,1 Person Assistance,Use of Upper Extremities Comments Mobility Comments Pt required assist with pericare after BM. Gait Assessment Gait Gait Assistance Required: Contact Guard Assist,1 Person Assist Distance (Feet) 150 Assistive Devices Assistive Device Gait Belt,Front Wheeled Walker Gait Deviations General Gait Pattern Decreased Stride Length,Flexed Trunk Factors Limiting Gait Function Factors Limiting Gait Function Decreased Activity Tolerance, Decreased Strength,Pain,Poor Balance Comments Gait Comments Pt progressing with gait and was able to ambulate in wills ~ 150ft. M5 PT-IP Objective Assessments Start: 03/18/19 12:14 Freq: NEEDED Status: Active Protocol: Document 03/18/19 09:13 AB (Rec: 03/18/19 12:29 AB [email or web address]) Orientation Orientation/Cognition Level of Alertness Alert Orientation Name,Place,Situation Safety Awareness Decreased Safety Awareness Gross Range of Motion Lower Extremity ROM Assessment Bilaterally Impaired Impairments pain limiting movements Strength Lower Extremity Strength Assessment Bilaterally Impaired Hip 3-/5 Knee 3-/5 Muscle Tone Muscle Tone WNL Yes M6 PT-IP Treatment Start: 03/18/19 12:14 Freq: NEEDED Status: Active Protocol: Document 03/21/19 15:22 CLB (Rec: 03/21/19 16:04 CLB [id number]) Physical Therapy Treatment Exercises Exercises Ankle Pumps M7 PT-IP Assessment and Plan Start: 03/18/19 12:14 Freq: NEEDED Status: Active Protocol: Document 03/21/19 15:22 CLB (Rec: 03/21/19 16:04 CLB [id number]) PT Summary Assessment and Plan Summary Impairments Pain,ROM,Strength,Balance, Coordination,Sensation,Tone, Cognition,Bed Mobility, Transfers,Gait,Activity Tolerance Progress Towards Goals Slow Progress due to Pain,Slow Progress due to Activity Tolerance Assessment Summary Pt increased ambulation to ~ 150ft. Pt requires cues for hand placement for safety with sit-stand. Pt progressing log roll but requires assist with LE's. Pt would benefit from SNF rehab to increase strength, activity tolerance, and safety in the home. Goals Bed Mobility Goal Contact Guard Assistance Transfer Goal Contact Guard Assistance,Front Wheeled Walker Gait Goal Contact Guard Assistance,Front Wheel Walker Gait Distance 100 Other Goals up/down 2 steps R rail CGA Days to Meet Goals 5 Frequency of Treatment Frequency Of Treatment Twice a Day Treatment Plan Physical Therapy Treatment Plan Bed Mobility Training,Transfer Training,Gait Training, Therapeutic Exercise,Balance Retraining,Post Op Education, Discharge Planning,Hot or Cold Pack,Neuromuscular Re-ed, Coordination Retraining,Manual Therapy Recommendations To Nursing Amount of Assist Needed 1 Person Assist Discharge Recommendations PT Discharge Recommendations SNF Rehab
[2019-03-21 19:00] VITALS: BP 118/55; PULSE 74; RESP 16; TEMP 36.9; O2SAT 92
[2019-03-21] MEDS: SENNOSIDES 8.6 MG TABLET 17.2 MG PO (21:02)
[2019-03-21] MEDS: CYCLOBENZAPRINE 10 MG TABLET PO (21:02)
[2019-03-22 00:05] VITALS: BP 131/68; PULSE 74; RESP 16; TEMP 36.5; O2SAT 93
--- NOTE | 2019-03-22 01:24 | PC.NURSE ---
Flight Radio Officer Note: 0040: Awake, resting in bed. Assisted up to bathroom with walker and 1 person: tolerated well. Pt states her pain level is low. She declines any pain medication at this time. Dressing to lower back is cdi. Vital signs stable.
[2019-03-22] MEDS: hydrOXYzine pamoate 25 MG CAPSULE PO ×2 (03:53→08:23)
[2019-03-22] MEDS: OXYCODONE IR 5 MG TABLET 10 MG PO ×2 (03:53→10:51)
[2019-03-22 04:00] VITALS: BP 149/73; PULSE 73; RESP 16; TEMP 36.6; O2SAT 95
--- NOTE | 2019-03-22 07:33 | P.DS_ITS ---
History of Present Illness History of Present Illness Date Patient Seen: 03/22/19 Time Patient Seen: 07:41 Chief complaint: Translaminar Interbody Fusion Narrative: Patient has been having chronic back pain and worsening lumbar radiculopathy. Patient failed multiple conservative management with worsening pain weakness and numbness in her lower extremity. Patient has been having difficulty performing activity of daily living. After discussing risks benefits of treatment options, patient elected proceed with surgery. Discharge Providers Provider Date of admission: 03/17/19 06:14 Discharge Date: 03/23/19 Primary care physician: Carlo Akins MD Consults: 03/17/19 14:54 Consult to Occupational Therapy Evaluate & Treat Comment: Physician Instructions: Evaluate and treat Consult to Physical Therapy Evaluate & Treat Comment: Physician Instructions: Evaluate and Treat Consult to Wound Care Routine Comment: Consulting Provider: Darryl [facility] 03/17/19 15:18 Consult to Wound Care Urgent Comment: Left leg ulcer with drainage, debrided by Consulting Provider: Cathy Villegas 03/17/19 16:06 Consult to Retail Delivery Driver Routine Comment: PT for after discharge. 03/18/19 23:39 Consult to Respiratory Therapy Evaluate & Treat Comment: Physician Instructions: Evaluate and treat Discharge provider: Hina Castillo PA-C Summary Hospital Course Discharge Diagnosis: s/p lumbar fusion Hypertension History of brain bleed Cellulitis of left lower extremity history of cellulitis right lower extremity Hypoxemia of unknown etiology Hospital Course: Zelda admitted for L4-S1 TLIF with Dr. Villegas. On POD #5 patient was ready to discharge to [facility]. Patient had significant muscle spasms throughout her stay. She did have significant muscle spasms prior to surgery as well. No complaints of back pain. She has been very slow to mobilize due to pain. She is eating and voiding without difficulty or assistance. She has been very limited with mobilization so she was started on ASA 81 mg daily. When she is mobilizing it more she will not need to take aspirin. She will require assisted facility for continued recovery after surgery. Exam Vital Signs (past 8 hours): - 03/22/19 00:05 03/22/19 04:00 Temperature 97.7 F 97.8 F Pulse Rate 74 73 Respiratory Rate 16 16 Blood Pressure 131/68 149/73 H Pulse Oximetry 93 95 Fraction of Inspired Oxygen 32 Oxygen Delivery Method Room Air Oxygen Flow Rate 0 Narrative Exam Narrative: Patient lying in bed in no acute distress. She is alert and orient x3. Dressing on back is CDI. Calves are soft, compressible, nontender bilaterally. She has a wound on her left leg since prior to surgery. She has been managed in [facility] for this previously. She has complaints of leg spasms th is morning. She is due for a muscle relaxant. Objective Labs Result Diagrams: 03/20/19 04:50 Discharge Plan Discharge Plan Patient Disposition: SNF Transfer to: [facility] [place] Under care of provider: Facility MD Consult as needed: Dental, Hearing, Mental health, Podiatry and Vision Discharge Med Rec/Prescriptions Prescriptions: New cyclobenzaprine 10 mg Tablet 10 mg PO Q8HR PRN (Reason: Spasms) Qty: 30 RF: 0 acetaminophen 325 mg Tablet 650 mg PO Q6HR PRN (Reason: Pain, Mild (1-3)) Qty: 60 RF: 0 aspirin 81 mg Tablet,Delayed Release (Dr/Ec) 81 mg PO DAILY Qty: 10 RF: 0 docusate sodium [DOK] 100 mg Capsule 100 mg PO BID Qty: 60 RF: 0 oxycodone 5 mg Tablet 5 mg PO Q4-6H PRN (Reason: pain, severe) Qty: 30 RF: 0 hydroxyzine pamoate 25 mg Capsule 25 mg PO Q6-8H PRN (Reason: Nausea And Vomiting) Qty: 30 RF: 0 oxycodone [OxyContin] 10 mg Tablet,Oral Only,Ext.Rel.12 Hr 10 mg PO BID Qty: 20 RF: 0 diclofenac sodium [Voltaren] 1 % gel 2 gram TOP QID Qty: 100 RF: 0 Continued amlodipine 10 mg Tablet 10 mg PO DAILY RF: 0 gabapentin 300 mg Capsule 300 mg PO TID PRN (Reason: Pain (Scale Score 1-3)) RF: 0 losartan 50 mg tablet 50 mg PO BID RF: 0 hydrochlorothiazide 25 mg tablet 25 mg PO DAILY RF: 0 Discontinued hydrocodone-acetaminophen 10-325 mg Tablet 2 tab PO Q4H PRN (Reason: Pain) RF: 0 Follow up/Referrals: Carlo Akins MD [Primary Care Provider] - Cathy Villegas MD [Physician] - Discharge Health Status Brief summary of current health status: Patient admitted for TLIF. Multidrug resistant organism: No MDRO Provider Discharge Instructions Diet: Regular Liquid consistency: Normal/Thin Food texture: Regular Activity: No excessive bending, lifting, or twisting Cold/Heat Therapy: As needed Skin/Wound/Dressing Care Skin care: She will need to follow up with primary care for the left leg wound Report to your healthcare provider any signs of infection, such as:: chills, fever and increased pain Dressing: Leave cover site dressing on until appointment [facility] Reason for rehabilitation: Post-operative therapy Rehab type: Physical therapy and Occupational therapy Visit Report/Discharge Packet Instructions: DI for Transforaminal Lumbar Interbody Fusion Discharge Data Primary Care Provider: Carlo Akins Discharges patient from system. Discharge Date/Time: 03/22/19 03:15
[2019-03-22] MEDS: CYCLOBENZAPRINE 10 MG TABLET PO (07:37)
[2019-03-22] MEDS: ACETAMINOPHEN 325 MG TABLET 650 MG PO (07:37)
--- NOTE | 2019-03-22 07:46 | PC.NURSE ---
Addendum entered by Alba Fisher R.N. 03/22/19 08:27: Patient c/o of continuous spasms in right leg, grimacing, grabbing at site, restless in the bed. Warm blanket, and repositioning offered. Refused to go to chair it hurts my back, RN suggests sitting on edge of bed, patient agreeable to this. Given PRN Vistaril and sitting at edge of bed for breakfast. Patient reports decreasing spasms. Original Note: Patient c/o spasms and pain in RLE, given PRN Flexeril and Tylenol. Will follow up. Patient repositioned, lung sounds clear, vital signs WNL, cardiac WNL, dsg on lower left leg CDI. Call light in reach, denies further needs at this time.
[2019-03-22 07:59] VITALS: BP 136/67; PULSE 77; RESP 18; TEMP 36.7; O2SAT 93
[2019-03-22] MEDS: AMLODIPINE 5 MG TABLET 10 MG PO (08:21)
[2019-03-22] MEDS: OXYCODONE ER 10 MG TAB PO (08:22)
[2019-03-22] MEDS: hydroCHLOROthiazide 25 MG TABLET PO (08:22)
[2019-03-22] MEDS: ASPIRIN EC 81 MG TABLET PO (08:23)
[2019-03-22] MEDS: LOSARTAN 50 MG TABLET PO (08:23)
[2019-03-22] MEDS: SODIUM CHLORIDE 0.9% FLUSH 10 ML IV (08:24)
[2019-03-22] MEDS: DOCUSATE 100 MG CAPSULE PO (08:24)
[2019-03-22 10:11] VITALS: PULSE 87; RESP 18; O2SAT 99
--- NOTE | 2019-03-22 10:19 | CM.DPC ---
DCP Cont: Faxed discharge packet (signed meds, PASRR, and discharge summary) to [facility] [place]. Fax confirmation scanned in. Emily Lopez, [facility] Mine Shifter
--- NOTE | 2019-03-22 10:24 | CM.DPNOTE ---
DCP/continued: Reviewed chart. Patient is a 78yr old female with orders to discharge to SNF today. Per notes, d/c arrangements have been coordinated with [facility]. DEGREASING SOLUTION RECLAIMER met with patient to confirm plan. Patient aware and agreeable. Placed call to Kerry and she will coordinate cabulance transport. Orders obtained and YANA/Emily faxed all need discharge information to [facility] including PASRR. Patient reports that she will notify her family. P: [facility] today. LUIS EDUARDO Worrell Discharge Planning/Care Management CM Discharge Assessment Start: 03/22/19 10:22 Freq: Status: Active Protocol: Document 03/22/19 10:22 KJS (Rec: 03/22/19 10:24 KJS [id number]) Discharge Planning Assessment Assigned Modeling Instructor LUIS EDUARDO Worrell Advance Directives? No Advance Directives on File No History Provided By Patient Prior Living Arrangements House Household Members children Patient/Family Preference Long-Term Facility Barriers to Discharge No Discharge Plan Long-Term Facility Referrals Initiated Long-Term If patient plan is SNF: Has PASSR been Yes completed? Medicare Choice List Provided Yes Has Agency SNF been contacted Yes Comment [facility] admit phone# Review Status In Process Next Review Type Continued Stay Review Pre-Anesthesia Assessment Start: 02/04/19 12:36 Freq: Status: Complete Protocol: Document 02/04/19 12:36 CAB (Rec: 02/04/19 13:10 CAB [id number]) Pre-Anesthesia Assessment Patient Information Reviewed Via Phone Assessment Assessment Completed With Patient Diagnostic Results EKG Comment Outside labs/EKG 01/21/19 scanned to record Primary Care Provider Carlo Akins Seen Specialist in Last 12 Months Yes Specialist Seen Orthopedist,Other Comment PCP clearance and wound clinic note 02/16/19 scanned to record Primary Language Grenadian Height 167.64 cm Weight 94.347 kg Body Mass Index (BMI) 33.5 Hearing Ability Normal Visual Assist Glasses Dentition Type Teeth, Natural Present Barriers to Learning None Other Aids No Hx Anesthesia Reactions No Hx Family Anesthesia Reaction No Hx Malignant Hyperthermia No Hx Blood Transfusions No Anesthesia Review Requested No alcohol intake never Smoking Status Never smoker Substance Use Type does not use Pain Present Pain Reported Musculoskeletal Symptoms Abnormal Gait,Back Pain,Muscle Spasms,Numbness,Radiating Pain into Limb,Tingling History of Falling (Recent or History of No ) Patient is completely paralyzed or No completely immobile Prosthesis or Orthotic Device Cane,Front Wheel Walker Mental Status Oriented to own ability Is patient on oxygen? No Does patient have PIZANO/SOB No Hx Sleep Apnea No Currently Taking a Beta Jenni No Can You Climb a Flight of Stairs Without No SOB Hx Chest Pain No Hx SOB No Hx Syncope or Dizziness No Anti-Coagulant Therapy No Has a Injection Operator No Cardiac Testing No Hx Pacemaker/ICD No Pacemaker Rep Required? No Cardiac Clearance Received Not Applicable Diet Type At Home Regular dysphagia No Bladder Pattern Nocturia Urinary Catheter Present No Hx Urinary Self Catheterization No Diabetes No Patient No Lactating No Hx Drug Resistant Organism No Presence of External or Internal Medical Yes: Bilateral knee prosthesis Devices Have you traveled outside the [facility] in the last 30 days? Marital Status / Lives With family Prior Living Arrangements House Number of Floors (Floors) One Floor Support System Child/Children Does the Patient Have Assistance After Yes Surgery Patient Discharge Plan Description Return Home Comment Pt advised 1-2 day length of stay per surgeon Feels Safe in Current Environment Yes Been Physically Hurt or Threatened By a No Person in Current Environment Do you have thoughts of harming yourself None or others? Are you currently considering suicide? No Do you have a plan to hurt yourself or No Plan others? Do You Have Any Spiritual Beliefs That No May Affect Your HC Choices? Do You Have Any Cultural Practices That No May Affect Your HC Choices? Comment Marianne Who Can We Speak to About Patient's Care Family, friends Identifying Code for Release of Patient Declines to issue Information Health Care Proxy/Next of Kin Keegan (son) Health Care Proxy Emergency Contact Name Keegan (son) Emergency Contact Advance Directives? No: Declines further information PAC Instructions Durable medical equipment, Medications to take/avoid, Nasal antibiotic,No ETOH/ petroleum product on skin DOS, NPO,Post-op transportation,Pre -surgical wash,Sensory aids, Sturdy shoes/comfortable clothes,Do not bring valuables and remove jewelry
[2019-03-22] MEDS: GABAPENTIN 300 MG CAPSULE PO (10:51)
--- NOTE | 2019-03-22 11:11 | PT.IPTN ---
Current Diagnoses Spondylolisthesis, lumbar region (03/17/19) Other spondylosis with radiculopathy, lumbosacral region (03/17/19) Spinal stenosis, lumbar region with neurogenic claudication (03/17/19) Arthrodesis status (03/17/19) Surgery Performed Operation Date: 03/17/19 07:45 Actual Procedures p L4-5, L5-S1 TLIF with posterior instrumentation - Cathy Villegas MD Physical Therapy Treatment Note M2 PT-IP Current Condition Start: 03/18/19 12:14 Freq: NEEDED Status: Discharge Protocol: Document 03/18/19 09:13 AB (Rec: 03/18/19 12:29 AB [email or web address]) Physical Therapy Current Condition Current Condition Evaluation Date 03/18/19 Treatment Diagnosis s/p L4-5, L5S1 fusion; difficulty in walking Onset Date 03/17/19 Precautions Lumbar Precautions Log Roll,No Twisting,Limit Bending,Lifting Restriction of 10 lbs,Gait Belt above Incisional Area M3 PT-IP Subjective Start: 03/18/19 12:14 Freq: NEEDED Status: Discharge Protocol: Document 03/22/19 11:11 RS (Rec: 03/22/19 14:05 [id number]) Subjective Physical Therapy Visit Type Type Treatment Note Visit Start Time 10:30 Visit Stop Time 11:11 Total Visit Minutes 41 Physical Therapy Visit Comments Patient Comments Pt reports she hopes the time at SNF is short. Therapy Pain Assessment Pain When Pain Assessed During Mobility Pain Present Pain Present Denied Pain M4 PT-IP Mobility and Gait Start: 03/18/19 12:14 Freq: NEEDED Status: Discharge Protocol: Document 03/22/19 11:11 RS (Rec: 03/22/19 14:05 [id number]) PT-Bed Mobility Assessment Rolling Type of Rolling Log Rolling Level of Assist Minimal Assistance Supine to Sit Supine to Sit Minimal Assistance Sit to Supine Sit to Supine Minimal Assistance Scooting Scooting to Edge of Bed Contact Guard Assistance PT-Transfer Assessment Sit to and From Stand Sit to and from Stand Minimal Assistance,1 Person Assistance,Use of Upper Extremities Equipment Transfer Assistive Device Gait Belt,Front Wheeled Walker Orthotic/Prosthetic Devices or Brace: No Transfers Transfer Destination Bed,Chair Transfer Technique walked Gait Assessment Gait Gait Assistance Required: Contact Guard Assist,1 Person Assist Distance (Feet) 150 Assistive Devices Assistive Device Gait Belt,Front Wheeled Walker Gait Deviations General Gait Pattern Decreased Stride Length,Flexed Trunk Factors Limiting Gait Function Factors Limiting Gait Function Decreased Activity Tolerance, Decreased Strength,Pain,Poor Balance M5 PT-IP Objective Assessments Start: 03/18/19 12:14 Freq: NEEDED Status: Discharge Protocol: Document 03/18/19 09:13 AB (Rec: 03/18/19 12:29 AB [email or web address]) Orientation Orientation/Cognition Level of Alertness Alert Orientation Name,Place,Situation Safety Awareness Decreased Safety Awareness Gross Range of Motion Lower Extremity ROM Assessment Bilaterally Impaired Impairments pain limiting movements Strength Lower Extremity Strength Assessment Bilaterally Impaired Hip 3-/5 Knee 3-/5 Muscle Tone Muscle Tone WNL Yes M6 PT-IP Treatment Start: 03/18/19 12:14 Freq: NEEDED Status: Discharge Protocol: Document 03/21/19 15:22 CLB (Rec: 03/21/19 16:04 CLB [id number]) Physical Therapy Treatment Exercises Exercises Ankle Pumps M7 PT-IP Assessment and Plan Start: 03/18/19 12:14 Freq: NEEDED Status: Discharge Protocol: Document 03/22/19 11:11 RS (Rec: 03/22/19 14:05 RS [id number]) PT Summary Assessment and Plan Summary Impairments Pain,ROM,Strength,Balance, Coordination,Sensation,Tone, Cognition,Bed Mobility, Transfers,Gait,Activity Tolerance Progress Towards Goals Slow Progress due to Pain,Slow Progress due to Activity Tolerance Assessment Summary Pt still requiring more assist than is available at home on top of patient requiring daily skilled therapies to optimize function. Therefore, continue to recommend pt transition to SNF rehab once medically ready, which will likely occur later today. Frequency of Treatment Frequency Of Treatment Discharge Recommendations To Nursing Amount of Assist Needed 1 Person Assist Discharge Recommendations PT Discharge Recommendations SNF Rehab
--- NOTE | 2019-03-22 12:11 | OT.IP.TRT ---
Current Diagnoses Spondylolisthesis, lumbar region (03/17/19) Other spondylosis with radiculopathy, lumbosacral region (03/17/19) Spinal stenosis, lumbar region with neurogenic claudication (03/17/19) Arthrodesis status (03/17/19) Surgery Performed Operation Date: 03/17/19 07:45 Actual Procedures p L4-5, L5-S1 TLIF with posterior instrumentation - Cathy Villegas MD Occupational Therapy Treatment Note M2 OT-IP Current Condition Start: 03/18/19 17:26 Freq: Status: Active Protocol: Document 03/18/19 17:27 [facility] (Rec: 03/18/19 17:44 [facility] [id number]) Occupational Therapy Current Condition Current Condition Evaluation Date 03/18/19 Treatment Diagnosis S/P L4-5, L5-S1, TLIF with posterior instr Diagnosis Onset Date 03/17/19 Post Operative Precautions Lumbar Precautions Log Roll,No Twisting,Limit Bending,Lifting Restriction of 10 lbs,Gait Belt above Incisional Area Weight Bearing Status Weight Bearing Status Weight Bear as Tolerated M3 OT- IP Subjective and Pain Start: 03/18/19 17:26 Freq: Status: Active Protocol: Document 03/22/19 11:56 [facility] (Rec: 03/22/19 12:11 [facility] [id number]) OT- Subjective Occupational Therapy Visit Type Type Treatment Note Visit Start Time 11:18 Visit Stop Time 11:52 Total Visit Minutes 34 Occupational Therapy Visit Comments Patient Comments Pt wanting to use the bathroom and wanting to shower. Patient/Caregiver Goals Pt ready to go to skilled rehab today. OT Pain Assessment Pain When Pain Assessed At Rest Pain Present Pain Present Pain Reported Location Back Description Spasm M4 OT- IP ADL's Start: 03/18/19 17:26 Freq: Status: Active Protocol: Document 03/22/19 11:56 [facility] (Rec: 03/22/19 12:11 [facility] [id number]) OT ADL-Dressing General Eval Upper Body Dressing Ability Moderate Assistance Lower Body Dressing Ability Maximum Assistance Assistive Devices Dressing Assistive Devices Air Brakes Inspector Comments OT Dressing Comments LORNE to help turn bra around, suggested best to have looser bra so able to fasten in back to limit risk of twisting. Pt also needing assist to pull down sweat shirt over her chest. MAX A for LB dressing due to pt's cellulitis on her legs to be careful from rubbing them. Pt states needing more assist for needs today due to arthritis flaring up in right hand. OT ADL-Toileting General Evaluation Toileting Ability Minimal Assistance Areas Needing Assistance Manage Clothing,Perform Perineal Hygiene Comments OT Toileting Comments Assist for completeness to wipe from the back and to help pull up brief over her hips. OT ADL-Bathing Bathing Type Bathing Type Shower General Evaluation Bathing Ability Moderate Assistance Areas Needing Assistance Wash/Dry Back,Wash/Dry Perineal Area,Wash/Dry Lower Extremities Devices Bathing Equipment Hand Held Shower Sprayer, Shower Chair with Arms Comments OT Bathing Comments Pt needing assist to wash/dry BLE, back and completeness for bottom for hygiene needs. Pt may benefit from toilet aid. M5 OT- IP IADL's Start: 03/18/19 17:26 Freq: Status: Active Protocol: Document 03/18/19 17:27 [facility] (Rec: 03/18/19 17:44 [facility] [id number]) OT-Instrumental Activities of Daily Living Home Safety Awareness Home Safety Comments Pt states manages everything on her own at home. M6 OT- IP Functional Cognition Start: 03/18/19 17:26 Freq: Status: Active Protocol: Document 03/22/19 11:56 [facility] (Rec: 03/22/19 12:11 [facility] [id number]) Cognitive Factors Limiting Selfcare Function Cognitive Ability Level of Alertness Alert Patient Orientation Name,Age,Birthday,Month,Date, Year,Day of Week,Place, Situation Attention Span Ability Capable of Focused Attention, Capable of Sustained Attention Ability to Follow Commands Able to Follow Multi-Step Commands Memory Description No Deficits Noted Safety Awareness Decreased Ability to Apply Precautions,Underestimates Need for Assistance Cognitive Comments Cognitive Assessment Comments Pt needing vc to incorporate back precautions especially during dressing needs. M7 OT- IP Mobility and Balance Start: 03/18/19 17:26 Freq: Status: Active Protocol: Document 03/22/19 11:56 [facility] (Rec: 03/22/19 12:11 [facility] [id number]) OT-Transfer Assessment Sit to and From Stand Sit to and from Stand Minimal Assistance,1 Person Assistance Transfers Transfer Ability Minimal Assistance,Moderate Assistance,1 Person Assistance Technique Transfer Destination Chair,Shower Stall,Toilet Transfer Technique Stand Step Pivot Devices Transfer Assistive Devices Gait Belt,Front Wheeled Walker Comments Mobility Comments Much improved for mobility needs however still unsteady when stepping over threshold of the shower and for uneven surfaces. OT- Gait Assessment Gait Gait Assistance Required: Minimum Assistance,1 Person Assist Assistive Devices Assistive Device Gait Belt,Front Wheeled Walker OT- Balance Assessment Sitting Balance and Reactions Static Sitting Balance Ability Normal Dynamic Sitting Balance Ability Fair Standing Balance and Reactions Static Standing Balance Ability Fair M8 OT- IP Objective Assessments Start: 03/18/19 17:26 Freq: Status: Active Protocol: Document 03/18/19 17:27 [facility] (Rec: 03/18/19 17:44 [facility] [id number]) OT Gross Range of Motion Upper Extremity Range of Motion Assessment Within Functional Limits OT Strength Upper Extremity Strength Assessment Within Functional Limits M9 OT- IP Assessment and Plan Start: 03/18/19 17:26 Freq: Status: Active Protocol: Document 03/22/19 11:56 [facility] (Rec: 03/22/19 12:11 [facility] [id number]) OT Summary Assessment and Plan Potential Analytic Complexity at Evaluation Low Summary OT Impairments Pain,Balance,Functional Mobility,Grooming,Dressing, Toileting,Bathing,Toilet Transfers,Shower Transfers Progress Towards Goals Slow Progress due to Medical Issues Assessment Summary Pt doing much better and able to participate in shower today . Pt will benefit from skilled rehab to continue to practice safety with incorporation of back precautions for ADl and functional mobility needs. Goals Days to Meet Goals 1 Treatment Plan OT Treatment Plan ADL Training,Functional Cognition Training,Functional Mobility,Patient/Family Education,Discharge Planning Discharge Recommendations OT Discharge Recommendations SNF Rehab Home Equipment Needs Tub bench, toilet aid
--- NOTE | 2019-03-22 13:27 | PC.NURSE ---
D/C'd in wheel chair with facility designee at [id number].
== END 2019-03-22 03:15 | DRG 454 ==
PROVIDERS: Physician Assistant; Admitting Provider Orthopaedic Surgery Orthopaedic Surgery of the Spine; PCP Internal Medicine; Visit Provider Orthopaedic Surgery Orthopaedic Surgery of the Spine
PROC: 0SG00AJ Fusion of Lumbar Vertebral Joint with Interbody Fusion Device, Posterior Approach, Anterior Column, Open Approach (ICD-10-PCS; principal; 2019-03-17 07:45)
DX: M43.16 Spondylolisthesis, lumbar region (principal); L03.116 Cellulitis of left lower limb; I87.313 Chronic venous hypertension (idiopathic) with ulcer of bilateral lower extremity; L97.812 Non-pressure chronic ulcer of other part of right lower leg with fat layer exposed; L97.822 Non-pressure chronic ulcer of other part of left lower leg with fat layer exposed; R09.02 Hypoxemia; M47.27 Other spondylosis with radiculopathy, lumbosacral region; M48.062 Spinal stenosis, lumbar region with neurogenic claudication; I10 Essential (primary) hypertension; M48.07 Spinal stenosis, lumbosacral region; M43.17 Spondylolisthesis, lumbosacral region; M62.838 Other muscle spasm
CPT/HCPCS: 36415; 72100; 76000; 85014; 85018; 94760; 94762; 97116; 97162; 97165; 97530; 97535; C1776; C9290; J0131; J0330; J0690; J1100; J1170; J2405; J2704; J3010